=== PATIENT | male | born 1935 | race Caucasian/White ===

== ENCOUNTER → 2017-10-14 16:15 | Outpatient (CLI) | payer OTHER, SELFPAY ==
--- NOTE | 2017-10-14 16:18 | DI.RAD.S_ITS ---
PROCEDURE: XR LUMBAR SPINE MIN 4V INDICATIONS: Spinal stenosis with gait instability TECHNIQUE: 5 views of the lumbar spine were acquired. COMPARISON: None. FINDINGS: Bones: 5 nonrib-bearing vertebrae are present. There is grade 1 anterolisthesis of L5 on S1. Decrease intervertebral disc space and degenerative endplate changes are noted to all lumbar spine more prominent at L4-5 and L5-S1 levels. No vertebral body compression fractures. No suspicious bony lesions. Soft tissues: Overlying bowel gas pattern is normal. No suspicious soft tissue calcifications. Oblique images: There is suggestion of bilateral pars defect at L5 level. IMPRESSION: Possible pars defect at L5 level with grade 1 anterolisthesis of L5 on S1. Degenerative disc disease throughout lumbar spine more prominent in L4-5 and L5-S1 levels. Dictated by: Vernon Garcia M.D. on 10/15/2017 at 11:04 Approved by: Vernon Garcia M.D. on 10/15/2017 at 11:05
--- NOTE | 2017-10-14 16:18 | DI.MRI.S_ITS ---
PROCEDURE: MR LUMBAR SPINE WO CON INDICATIONS: Spinal stenosis with gait instability TECHNIQUE: Noncontrast sagittal T1 spin echo and T2 fast echo, sagittal STIR, coronal T2, axial T1 and T2 fast spin echo through the lumbar spine. COMPARISON: [facility], CR, XR LUMBAR SPINE MIN 4V, 10/14/2017, 16:10. FINDINGS: Image quality: Excellent. Alignment and Curvature: There are 5 lumbar-type vertebral bodies by plain film. There is mild, grade 1 anterolisthesis of L5 on S1. There is mild diffuse leftward curvature of the lumbar spine. Bone Marrow: Marrow is of normal overall signal. No acute vertebral body compression fractures. Moderate reactive signal within the endplates adjacent to the the L5-S1 intervertebral disc. Mild reactive signal within the endplates adjacent to the T12-L1, L1-L2, L2-L3, L3-L4, and L4-L5 intervertebral discs. Spinal Cord: Conus medullaris terminates at the L2-L3 disc space level. Visualized cord demonstrates normal signal and size. Paraspinous Soft Tissues: No paravertebral masses. L1-L2: Mild disc desiccation and diffuse disc bulge. Mild facet hypertrophy. Mild canal stenosis. Mild bilateral foraminal stenosis. L2-L3: Mild disc desiccation and diffuse disc bulge. Mild facet hypertrophy bilaterally. Mild canal stenosis. Mild left greater than right foraminal stenosis. L3-L4: Mild disc desiccation and diffuse disc bulge. Mild facet hypertrophy bilaterally. Mild canal stenosis. Mild bilateral foraminal stenosis. L4-L5: Mild disc desiccation and diffuse disc bulge. Mild facet and ligamentum flavum hypertrophy. Mild canal stenosis. Mild right greater than left foraminal stenosis. L5-S1: Moderate disc height loss and desiccation. Mild diffuse disc bulge/osteophyte. Moderate facet and ligamentum flavum artery bilaterally. Moderate canal stenosis. Severe bilateral foraminal stenosis. Bilateral intraforaminal L5 nerve root flattening. IMPRESSION: 1. Multilevel degenerative disc and facet disease, as well as ligamentum hypertrophy. 2. Multilevel canal stenoses, worst at L5-S1, where there is moderate canal stenosis. 3. Multilevel foraminal stenoses, worse at L5-S1 bilaterally, where there is bilateral L5 nerve root flattening. Recommend correlation with clinical symptoms to ascertain relevance of this finding. Dictated by: Angelika Layton M.D. on 10/15/2017 at 8:20 Approved by: Angelika Layton M.D. on 10/15/2017 at 8:30
== END ==
PROVIDERS: PCP Internal Medicine; Visit Provider Physical Medicine & Rehabilitation
DX: M48.062 Spinal stenosis, lumbar region with neurogenic claudication (principal); R26.81 Unsteadiness on feet; M51.36 Other intervertebral disc degeneration, lumbar region; M51.37 Other intervertebral disc degeneration, lumbosacral region; M43.17 Spondylolisthesis, lumbosacral region; M48.07 Spinal stenosis, lumbosacral region
CPT/HCPCS: 72110; 72148

== ENCOUNTER 2017-11-16 10:19 | Outpatient (CLI) | payer OTHER, SELFPAY ==
[2017-11-16] MEDS: BUPIVACAINE 0.25% (PF) VIAL 2 ML INJ (10:20)
[2017-11-16] MEDS: DEXAMETHASONE 10 MG/ML VIAL 20 MG INJ (10:20)
--- NOTE | 2017-11-16 10:20 | DI.RAD.S_ITS ---
PROCEDURE: PAIN L INTERLAMINAR/CAUDAL INJ INDICATIONS: 83857 L5/S1 Translaminar Epidural Steroid Injection FINDINGS: Fluoroscopic spot filming was performed to verify placement of spinal needles at the L5-S1 level(s), as labeled on the films. Appropriate location(s) of the needle tip(s) was confirmed by injection of iodinated contrast. IMPRESSION: Fluoroscopy for pain management. Dictated by: Keisha Hopson M.D. on 11/16/2017 at 12:49 Approved by: Keisha Hopson M.D. on 11/16/2017 at 12:50
[2017-11-16 10:29] VITALS: BP 184/96; PULSE 78; RESP 18; TEMP 36.1; O2SAT 98
[2017-11-16 10:50] VITALS: BP 168/98; PULSE 79; RESP 16; O2SAT 100
[2017-11-16 10:55] VITALS: BP 146/76; PULSE 79; RESP 19; O2SAT 100
--- NOTE | 2017-11-16 11:07 | P.PCN_ITS ---
Procedures Date/Time Date of procedure: 11/16/17 Time of procedure: 11:06 General Procedure description: PROVIDER: Deon Gonzalez DO Operative Note PREOP DIAGNOSIS 1. HNP WITH RADICULAR FEATURES, 2. MULTILEVEL CENTRAL STENOSIS, POST OP DIAGNOSIS 1. HNP WITH RADICULAR FEATURES, 2. MULTILEVEL CENTRAL STENOSIS, PROCEDURES 1. FLUORSCOPICALLY GUIDED CONTRAST CONTROLLED INTERLAMINAR EPIDURAL STEROID INJECTION - L5/S1 PHYSICIAN: Deon Gonzalez DO INDICATIONS Deon is referred by Dr. Womack for treatment of Bilateral Foraminal Stenosis L >R LE symptoms. FINDINGS Multilevel Central Spinal Stenosis with Nerve Root Compression DESCRIPTION OF PROCEDURE Fluoroscopically guided, contrast-controlled L5/S1 translaminar epidural steroid injection. Following denial of allergy and review of potential side effects and complications, including, but not necessarily limited to, infection, allergic reaction, local tissue breakdown, temporary as well as permanent nerve injury, paralysis, stroke and possible , the patient indicated that the patient understood and agreed to proceed. An informed consent document was signed by the patient, witnessed by a nurse, and placed in the patient's chart. Additionally, other treatment options including modalities, medications, and physical therapy were reviewed with the patient. After review of previous anaesthesic history and IV conscious sedation the patient was deemed safe to proceed with todays procedure with IV conscious sedation as ASA class II designation. Safety time-out was performed to confirm patient ID, procedure to be performed and site of procedure. IV sedation was accomplished with a combination of 2mg of Versed administered by the RN after DO order, titrated to patient comfort during the course of the procedure while the patient remained responsive to all verbal commands. In the prone position, following sterile prep and drape of the lumbar region, the L5/S1 translaminar space was identified fluoroscopically. The skin was anesthetized via a 25-gauge, 1.5-inch needle with 1% lidocaine solution. At this point, a 22-gauge short bevel spinal needle was atraumatically introduced and advanced under fluoroscopic guidance into the region of the L5/S1 translaminar space. Depth was confirmed on lateral view. Radiological data, including multiple fluoroscopic views of the lumbar spine, reveal a spinal needle at the L5/S1 translaminar space. Lateral views then show placement of the needle in the epidural space. Subsequent views show contrast material flowing superiorly and inferiorly in the epidural space. No vascular or intrathecal uptake is observed. At this point, using loss of resistance technique with saline and air, the epidural space was entered. This was confirmed following negative aspiration with injection of approximately 1.5 cc of Isovue 200, showing excellent epidural flow without vascular or intrathecal uptake. At this point, 1 cc of 1 % lidocaine solution combined with 3 cc or 20 mg of dexamethasone and 80mg Depo medrol was injected without incident. The patent tolerated the procedure without signs of symptoms of complications prior to transfer to the recovery area for further monitoring. The patient was then transferred to the recovery area where they were observed for an appropriate period of time after the injection. The patient reported a VAS score of 6 prior to the procedure and a post-procedure VAS of 0. Total Fluoroscopy Time: 11.8 seconds Total Conscious Sedation Time: 24min POST OP INSTRUCTIONS The patient was provided a Pain Log to continue to record their response to the target-specific procedure prior to follow-up visit with their referring physician. Additionally, specific post-injection care instructions and a contact number to our office were provided if concerns arise regarding possible complications associated with the procedure are suspected. Deon Gonzalez DO Complications: none
[2017-11-16 11:08] VITALS: BP 147/87; PULSE 76; RESP 18; O2SAT 97
[2017-11-16 11:12] VITALS: BP 149/85; PULSE 73; RESP 18; O2SAT 98
[2017-11-16] MEDS: methylPREDNISolone acetate 80 MG/ML VIAL INJ (11:13)
[2017-11-16] MEDS: IOPAMIDOL 15 ML VIAL 3 ML INJ (11:13)
== END 2017-11-16 11:38 | disposition home or self-care (01) ==
LOC: RAD 10:20
PROVIDERS: PCP Internal Medicine; Visit Provider Physical Medicine & Rehabilitation
DX: M48.062 Spinal stenosis, lumbar region with neurogenic claudication (principal); M48.07 Spinal stenosis, lumbosacral region; M51.17 Intervertebral disc disorders with radiculopathy, lumbosacral region
CPT/HCPCS: 62323; 99152; J1040; J1100; J2250

== ENCOUNTER 2017-12-21 13:54 | Outpatient (CLI) | payer OTHER, SELFPAY ==
[2017-12-21] VITALS (8 sets, daily range): BP systolic 151–170; BP diastolic 77–115; PULSE 72–101; RESP 18–19; TEMP 37; O2SAT 97–100
--- NOTE | 2017-12-21 13:55 | DI.RAD.S_ITS ---
PROCEDURE: PAIN L/S TRANSFORAMINAL INJECT INDICATIONS: SPONDYLOSIS FINDINGS: Fluoroscopic spot filming was performed to verify placement of spinal needles at the left L5-S1 level(s), as labeled on the films. Appropriate location(s) of the needle tip(s) was confirmed by injection of iodinated contrast. IMPRESSION: Fluoroscopy for pain management. Dictated by: Keisha Hopson M.D. on 12/21/2017 at 17:11 Approved by: Keisha Hopson M.D. on 12/21/2017 at 17:11
[2017-12-21] MEDS: MIDAZOLAM 5 MG/5 ML VIAL IV (14:57)
[2017-12-21] MEDS: IOPAMIDOL 15 ML VIAL 3 ML INJ (14:58)
[2017-12-21] MEDS: DEXAMETHASONE 10 MG/ML VIAL 20 MG INJ (14:58)
[2017-12-21] MEDS: methylPREDNISolone acetate 80 MG/ML VIAL INJ (14:58)
[2017-12-21] MEDS: BUPIVACAINE 0.25% (PF) VIAL 2 ML INJ (14:58)
--- NOTE | 2017-12-21 15:00 | PC.NURSE ---
pt accidentally discharged from tracker by this RN. pt in procedure at this time.
--- NOTE | 2017-12-21 15:12 | P.PCN_ITS ---
Procedures Date/Time Date of procedure: 12/21/17 Time of procedure: 15:11 General Procedure description: PREOP DIAGNOSIS 1. FORMAINAL STENOSIS WITH LE SYMPTOMS POST OP DIAGNOSIS 1. FORMAINAL STENOSIS WITH LE SYMPTOMS PROCEDURES 1. FLUOROSCOPICALLY GUIDED CONTRAST CONTROLLED TRANSFORAMINAL EPIDURAL STEROID INJECTION - Left L5/S1 PHYSICIAN: Deon Gonzalez DO INDICATIONS: Deon is referred by Dr. Womack for treatment of Foraminal Stenosis with Left> Right LE Symptoms FINDINGS Foraminal Nerve Root Compression secondary to disc disease and facet hypertrophy DESCRIPTION OF PROCEDURE: Following denial of allergy and review of potential side effects and complications, including, but not necessarily limited to, infection, allergic reaction, local tissue breakdown, stroke, temporary or permanent nerve injury, paralysis, and possible , the patient indicated that the patient understood and agreed to proceed. An informed consent document was signed by the patient, witnessed by a nurse, and placed in the patient's chart. Additionally, other treatment options including medications, modalities, and physical therapy were reviewed with the patient. After review of previous anaesthesic history and IV conscious sedation the patient was deemed safe to proceed with todays procedure with IV conscious sedation as ASA class II designation. Safety time-out was performed to confirm patient ID, procedure to be performed and site of procedure. IV sedation was accomplished with a combination of 3mg was administered by the RN after DO order , titrated to patient comfort during the course of the procedure while the patient remained responsive to all verbal commands In the prone position following sterile prep and drape of the lumbar region, the Left L5/S1 posterior neuroforamen was identified fluoroscopically. The skin was anesthetized via a 25-gauge 1.5-inch needle with 1% lidocaine solution. At this point, a 25-gauge 3.5-inch spinal needle was atraumatically introduced and advanced under fluoroscopic guidance through the posterior Left L5/S1 neuroforamen to approximately the anterior aspect of the canal. Depth was confirmed on lateral view. Following negative aspiration, injection of approximately 1.5 cc of Isovue 200 under live fluoroscopy in the AP view confirmed excellent flow along the nerve root, into the epidural space without vascular or intrathecal uptake observed Radiological data, including multiple fluoroscopic views of the lumbosacral spine, reveal a spinal needle at the Left L5/S1 posterior neuroforamen. Subsequent views show flow of contrast material flowing superiorly and inferiorly along the nerve root confirming epidural flow. Subsequently, a test dose of 1.5 cc of 1% lidocaine solution was administered and patient was observed for two minutes for signs or symptoms of complications , including abdominal pain, shortness of breath, bilateral upper or lower extremity weakness, nausea and vomiting, prior to steroid injection. At this point, a total of 3 cc or 20 mg of dexamethasone and 80mg Depo Medrol was injected without incident. The procedure tolerated the procedure well without signs or symptoms of complications prior to transfer to the recovery area continued monitoring without incident. The patient was then transferred to the recovery area where they were observed for an appropriate time after the injection. The patient reported a VAS score of 7 prior to the procedure and a post-procedure VAS of 0. Total Fluoroscopy Time: 20.9 seconds Total Conscious Sedation Time: 24min POST OP INSTRUCTIONS The patient was provided a Pain Log to continue to record their response to the target-specific procedure prior to follow-up visit with their referring physician. Additionally, specific post-injection care instructions and a contact number to our office were provided if concerns arise regarding possible complications associated with the procedure are suspected. Deon Gonzalez DO Complications: none
--- NOTE | 2017-12-21 15:16 | PC.NURSE ---
pt finished at 1505, tolerated procedure, vss, was awake through procedure, able to get up and off table without difficulty. transferred pt care to Kaylee RIVERA in pre procedure room for continued monitoring.
== END 2017-12-21 15:35 | disposition home or self-care (01) ==
LOC: RAD 13:55
PROVIDERS: PCP Internal Medicine; Visit Provider Physical Medicine & Rehabilitation
DX: M48.07 Spinal stenosis, lumbosacral region (principal); M48.062 Spinal stenosis, lumbar region with neurogenic claudication; M51.17 Intervertebral disc disorders with radiculopathy, lumbosacral region
CPT/HCPCS: 64483; 99152; J1040; J1100; J2250

== ENCOUNTER → 2018-06-03 10:32 | Outpatient (CLI) | payer OTHER, SELFPAY ==
[2018-06-03 11:47] LABS: Alanine Aminotransferase 25 IU/L (21-72); Albumin 4.7 g/dL (3.5-5.0); Albumin Globulin Ratio 1.5 (1.0-2.8); Alkaline Phosphatase 103 U/L (38-126); Aspartate Aminotransferase 23 IU/L (17-59); BUN Creatinine Ratio 22.7 (6-22); Bilirubin Total 0.9 mg/dL (0.2-1.3); Blood Urea Nitrogen 25 mg/dL (9-20); Calcium 9.4 mg/dL (8.4-10.2); Carbon Dioxide 27 mmol/L (22-32); Chloride 103 mmol/L (98-107); Cholesterol 189 mg/dL (140-199); Estimated Glomerular Filt Rate > 60.0 mL/min (>60); Globulin 3.1 g/dL (1.7-4.1); Glucose 101 mg/dL (80-110); HDL Cholesterol 63 mg/dL (40-60); HEMOLYSIS < 15 (0-50); LDL Cholesterol Calculated 112 mg/dL (<100); Potassium 4.2 mmol/L (3.4-5.1); Sodium 140 mmol/L (137-145); Total Protein 7.8 g/dL (6.3-8.2); Triglycerides 68 mg/dL (35-150)
== END ==
PROVIDERS: PCP Internal Medicine; Visit Provider Internal Medicine
DX: E78.2 Mixed hyperlipidemia (principal); I10 Essential (primary) hypertension
CPT/HCPCS: 36415; 80053; 80061

== ENCOUNTER → 2019-01-16 15:10 | Outpatient (CLI) | payer OTHER, SELFPAY ==
[2019-01-16 15:32] LABS: Add Manual Diff / Slide Review NO; Basophils Absolute Auto 100 /uL (0-100); Basophils Percent Auto 1.1 % (0-2); Eosinophils Absolute Auto 100 /uL (0-450); Eosinophils Percent Auto 0.7 % (2-4); Hematocrit 42.7 % (41-53); Hemoglobin 14.8 g/dL (13.5-17.5); Lymphocytes Absolute Auto 5100 /uL (1100-4500); Mean Corpuscular HGB Conc 34.6 % (30-36); Mean Corpuscular Hemoglobin 30.6 PG (26-34); Mean Corpuscular Volume 88.6 fL (80-100); Monocytes Absolute Auto 500 /uL (0-900); Monocytes Percent Auto 4.9 % (3-14); Neutrophils Absolute Auto 4000 /uL (1500-7000); Neutrophils Percent Auto 41.3 % (50-75); Platelet Count 181 X10^3/uL (150-400); Red Blood Cell Count 4.81 X10^6/uL (4.5-5.9); Red Cell Distribution Width 14.1 % (11.6-14.8); White Blood Cell Count 9.8 X10^3/uL (4.5-11.0)
[2019-01-16 15:50] LABS: Erythrocyte Sedimentation Rate 5 MM/HR (0-15)
[2019-01-16 16:37] LABS: Alanine Aminotransferase 17 IU/L (<50); Albumin 4.6 g/dL (3.5-5.0); Albumin Globulin Ratio 1.4 (1.0-2.8); Alkaline Phosphatase 84 U/L (38-126); Aspartate Aminotransferase 27 IU/L (17-59); BUN Creatinine Ratio 18.6 (6-22); Bilirubin Total 1.1 mg/dL (0.2-1.3); Blood Urea Nitrogen 26 mg/dL (9-20); C-Reactive Protein Quant 0.9 mg/dL (<1.0); Calcium 9.6 mg/dL (8.4-10.2); Carbon Dioxide 28 mmol/L (22-32); Chloride 98 mmol/L (98-107); Creatine Kinase 76 U/L (55-170); Estimated Glomerular Filt Rate 48.5 mL/min (>60); Globulin 3.2 g/dL (1.7-4.1); Glucose 103 mg/dL (80-110); HEMOLYSIS < 15 (0-50); Lipase 132 U/L (23-300); Potassium 4.1 mmol/L (3.4-5.1); Sodium 138 mmol/L (137-145); Total Protein 7.8 g/dL (6.3-8.2)
[2019-01-16 16:51] LABS: Free T4, Direct Thyroxine 1.51 ng/dL (0.78-2.19)
[2019-01-16 17:06] LABS: Thyroid Stimulating Hormone 1.53 uIU/mL (0.47-4.68)
== END ==
PROVIDERS: PCP Internal Medicine; Visit Provider Internal Medicine
DX: E78.2 Mixed hyperlipidemia (principal); I10 Essential (primary) hypertension; I25.10 Atherosclerotic heart disease of native coronary artery without angina pectoris; R26.81 Unsteadiness on feet; R63.0 Anorexia; R63.4 Abnormal weight loss; R53.1 Weakness
CPT/HCPCS: 36415; 80053; 82550; 83690; 84439; 84443; 85025; 85651; 86140

== ENCOUNTER → 2020-05-01 13:40 | Outpatient (CLI) | payer MEDICARE, SELFPAY ==
[2020-05-01] MEDS: COVID-19 VACC, Ad26(JANSSEN)/PF 0.5 ML IM (13:51)
== END ==
PROVIDERS: PCP Internal Medicine; Visit Provider Internal Medicine
DX: Z23 Encounter for immunization (principal)
CPT/HCPCS: 0031A; 91303

== ENCOUNTER → 2020-09-24 14:07 | Outpatient (CLI) | payer OTHER, SELFPAY ==
[2020-09-24 15:50] LABS: Alanine Aminotransferase 15 IU/L (<50); Albumin 4.2 g/dL (3.5-5.0); Albumin Globulin Ratio 1.1 (1.0-2.8); Alkaline Phosphatase 119 U/L (38-126); Aspartate Aminotransferase 26 IU/L (17-59); BUN Creatinine Ratio 18.8 (6-22); Bilirubin Total 0.6 mg/dL (0.2-1.3); Blood Urea Nitrogen 26 mg/dL (9-20); Calcium 9.2 mg/dL (8.4-10.2); Carbon Dioxide 25 mmol/L (22-32); Chloride 105 mmol/L (98-107); Estimated Glomerular Filt Rate 49.1 mL/min (>60); Globulin 3.8 g/dL (1.7-4.1); Glucose 111 mg/dL (80-110); HEMOLYSIS < 15 (0-50); Sodium 139 mmol/L (137-145); Uric Acid 6.6 mg/dL (3.5-8.5)
[2020-09-24 16:21] LABS: TSH w/ Reflex to FT4 1.28 uIU/mL (0.47-4.68)
== END ==
PROVIDERS: PCP Internal Medicine; Referring Provider Internal Medicine; Visit Provider Internal Medicine
DX: E78.2 Mixed hyperlipidemia (principal); I10 Essential (primary) hypertension; R60.9 Edema, unspecified
CPT/HCPCS: 36415; 80053; 84443; 84550

== ENCOUNTER → 2020-10-22 12:24 | Outpatient (CLI) | payer OTHER, SELFPAY ==
[2020-10-22 13:45] LABS: BUN Creatinine Ratio 19.1 (6-22); Blood Urea Nitrogen 25 mg/dL (9-20); Calcium 9.1 mg/dL (8.4-10.2); Carbon Dioxide 29 mmol/L (22-32); Chloride 103 mmol/L (98-107); Estimated Glomerular Filt Rate 52.1 mL/min (>60); Glucose 105 mg/dL (80-110); HEMOLYSIS < 15 (0-50); Potassium 4.5 mmol/L (3.4-5.1); Sodium 139 mmol/L (137-145)
== END ==
PROVIDERS: PCP Internal Medicine; Referring Provider Internal Medicine; Visit Provider Internal Medicine
DX: R60.9 Edema, unspecified (principal)
CPT/HCPCS: 36415; 80048

== ENCOUNTER → 2020-11-12 14:49 | Outpatient (CLI) | payer OTHER, SELFPAY ==
--- NOTE | 2020-11-12 15:12 | DI.ECHO.S_ITS ---
Reason For Study: PERIPHERAL EDEMA : :Ordering Physician: DANNI, : :FRANCISCA Heredia Performed By: Julia Hernandez : :Referring: FRANCISCA RAZO : + + Interpretation Summary Normal sinus rhythm. Normal LV size, wall thickness, wall motion and LV systolic function. EF is 50-55%. Stage I diastolic dysfunction. Severe biatrial enlargement. No significant valvular abnormalities. No prior study available for comparison. No cardiovascular etiology of peripheral edema found. Procedure: A two-dimensional transthoracic echocardiogram with color flow and Doppler was performed. The study quality was technically adequate. There is no prior echocardiogram noted for this patient. The patient was in sinus rhythm with heart rates between 61-78 bpm during the exam. Left Ventricle: The left ventricle is normal in size and wall thickness. The ejection fraction is estimated to be 50-55%. Right Ventricle: The right ventricle is normal in size and function. Atria: The left atrium is severely dilated. The right atrium is severely dilated. There is no Doppler evidence for an interatrial shunt. The atrial septum is aneurysmal. Mitral Valve: The mitral valve leaflets appear mildly thickened, but open well. There is mild mitral regurgitation. Aortic Valve: The aortic valve is trileaflet. The aortic valve opens well. There is mild aortic valve sclerosis. There is no aortic valve stenosis. There is mild aortic regurgitation. Tricuspid Valve: The tricuspid valve is normal in structure and function. There is mild tricuspid regurgitation. Pulmonic Valve: The pulmonic valve leaflets are thin and pliable; valve motion is normal. There is mild pulmonic regurgitation. Great Vessels: The aortic root is normal size. The ascending aorta is mildly enlarged. The IVC is of normal diameter and collapses greater than 50% with a sniff. This suggests a low right atrial pressure of 3 mm Hg. Pericardium/ Pleura There is no pericardial effusion. There is no pleural effusion. MMode/2D Measurements & Calculations LVIDd: 5.3 cm LVOT diam: 2.3 cm LVIDs: 4.1 cm Ao root diam: 3.9 cm FS: 23.9 % asc Aorta Diam: 3.6 cm IVSd: 0.80 cm LVPWd: 1.1 cm LV donovan. diameter/BSA (cm/m^2): 2.9 LV sys. diameter/BSA (cm/m^2): 2.2 LA A2 area: 27.9 cm2 RA long axis: 5.8 cm LA A4 area: 28.8 cm2 RA area: 24.8 cm2 LA length (vol): 6.2 cm RA vol: 89.7 ml LA vol: 109.6 ml RA : 48.3 ml/m2 LA vol index: 59.0 ml/m2 IVC diam: 1.4 cm RVD1 (basal): 3.7 cm RVD2 (mid): 3.3 cm TAPSE: 2.6 cm Doppler Measurements & Calculations Ao V2 max: 162.1 cm/sec LVOT Max Beto: 88.5 cm/sec Ao V2 mean: 123.5 cm/sec LV V1 max P.1 mmHg Ao max P.5 mmHg LV V1 VTI: 20.2 cm Ao mean P.6 mmHg WANG(I,D): 2.4 cm2 Ao V2 VTI: 36.2 cm WANG(V,D): 2.3 cm2 sev ratio: 0.56 WANG indexed to BSA (cm^2/m^2): 1.3 MV E max beto: 71.1 cm/sec TR max beto: 261.8 cm/sec MV A max beto: 94.4 cm/sec TR max P.4 mmHg MV E/A: 0.75 PA V2 max: 86.0 cm/sec Med Peak E' Beto: 7.3 cm/sec PA V2 mean: 59.5 cm/sec E/E' med: 9.7 PA mean P.5 mmHg Lat Peak E' Beto: 9.3 cm/sec PA pr(Accel): 32.8 mmHg E/E' lat: 7.6 E/e' average: 8.7 MV dec time: 0.23 sec SV(LVOT): 85.8 ml Electronically signed by: Saranya Nuñez M.D. on Reading Physician:11/13/2020 01:20 AM
== END ==
PROVIDERS: PCP Internal Medicine; Referring Provider Internal Medicine; Visit Provider Internal Medicine
DX: R60.9 Edema, unspecified (principal); I51.7 Cardiomegaly
CPT/HCPCS: 93306

== ENCOUNTER → 2021-04-16 14:01 | Outpatient (CLI) | payer OTHER, SELFPAY ==
[2021-04-16 15:49] LABS: Alanine Aminotransferase 12 IU/L (<50); Albumin 4.4 g/dL (3.5-5.0); Albumin Globulin Ratio 1.1 (1.0-2.8); Alkaline Phosphatase 107 U/L (38-126); Aspartate Aminotransferase 25 IU/L (17-59); BUN Creatinine Ratio 17.2 (6-22); Bilirubin Total 0.7 mg/dL (0.2-1.3); Blood Urea Nitrogen 26 mg/dL (9-20); Carbon Dioxide 28 mmol/L (22-32); Chloride 105 mmol/L (98-107); Estimated Glomerular Filt Rate 44.2 mL/min (>60); Glucose 104 mg/dL (80-110); HEMOLYSIS < 15 (0-50); Potassium 4.4 mmol/L (3.4-5.1); Sodium 139 mmol/L (137-145); Total Protein 8.4 g/dL (6.3-8.2)
== END ==
PROVIDERS: PCP Internal Medicine; Referring Provider Internal Medicine; Visit Provider Internal Medicine
DX: N18.31 Chronic kidney disease, stage 3a (principal); I10 Essential (primary) hypertension; E78.2 Mixed hyperlipidemia
CPT/HCPCS: 36415; 80053

== ENCOUNTER → 2021-08-29 10:51 | Outpatient (CLI) | payer OTHER, SELFPAY ==
[2021-08-29 12:10] LABS: BUN Creatinine Ratio 18.5 (6-22); Blood Urea Nitrogen 25 mg/dL (9-20); Calcium 8.9 mg/dL (8.4-10.2); Carbon Dioxide 29 mmol/L (22-32); Chloride 102 mmol/L (98-107); Estimated Glomerular Filt Rate 51 mL/min (>60); Glucose 99 mg/dL (80-110); HEMOLYSIS < 15 (0-50); Potassium 4.4 mmol/L (3.4-5.1); Sodium 140 mmol/L (137-145)
== END ==
PROVIDERS: PCP Internal Medicine; Referring Provider Internal Medicine; Visit Provider Internal Medicine
DX: I10 Essential (primary) hypertension (principal); N18.31 Chronic kidney disease, stage 3a
CPT/HCPCS: 36415; 80048

== ENCOUNTER → 2022-02-27 11:40 | Outpatient (CLI) | payer OTHER, SELFPAY ==
[2022-02-27 13:12] LABS: BUN Creatinine Ratio 26.2 (6-22); Blood Urea Nitrogen 33 mg/dL (9-20); Calcium 8.5 mg/dL (8.4-10.2); Carbon Dioxide 29 mmol/L (22-32); Chloride 103 mmol/L (98-107); Estimated Glomerular Filt Rate 56 mL/min (>60); Glucose 94 mg/dL (80-110); HEMOLYSIS 36 (0-50); Potassium 4.7 mmol/L (3.4-5.1); Sodium 140 mmol/L (137-145)
== END ==
PROVIDERS: PCP Internal Medicine; Referring Provider Internal Medicine; Visit Provider Internal Medicine
DX: I10 Essential (primary) hypertension (principal); N18.31 Chronic kidney disease, stage 3a
CPT/HCPCS: 36415; 80048

== ENCOUNTER → 2022-09-04 11:34 | Outpatient (CLI) | payer OTHER, SELFPAY ==
[2022-09-04 12:43] LABS: Alanine Aminotransferase 17 IU/L (<50); Albumin 4.3 g/dL (3.5-5.0); Albumin Globulin Ratio 1.1 (1.0-2.8); Alkaline Phosphatase 111 U/L (38-126); Aspartate Aminotransferase 24 IU/L (17-59); BUN Creatinine Ratio 18.1 (6-22); Bilirubin Total 0.8 mg/dL (0.2-1.3); Blood Urea Nitrogen 23 mg/dL (9-20); Calcium 8.6 mg/dL (8.4-10.2); Carbon Dioxide 28 mmol/L (22-32); Chloride 101 mmol/L (98-107); Estimated Glomerular Filt Rate 55 mL/min (>60); Globulin 3.9 g/dL (1.7-4.1); Glucose 104 mg/dL (80-110); HEMOLYSIS < 15 (0-50); Sodium 137 mmol/L (137-145); Total Protein 8.2 g/dL (6.3-8.2)
== END ==
PROVIDERS: PCP Internal Medicine; Referring Provider Internal Medicine; Visit Provider Internal Medicine
DX: I10 Essential (primary) hypertension (principal); E78.2 Mixed hyperlipidemia; N18.31 Chronic kidney disease, stage 3a
CPT/HCPCS: 36415; 80053

== ENCOUNTER 2024-03-20 11:08 | Inpatient (IN) | payer OTHER, SELFPAY ==
[2024-03-20] VITALS (12 sets, daily range): BP systolic 127–164; BP diastolic 51–90; PULSE 73–119; RESP 16–33; TEMP 36.9–37.2; O2SAT 89–100; BMI 23.3
--- NOTE | 2024-03-20 11:32 | EKG_ITS ---
[facility] [address] [place] [address] Test Date: 2024-03-20 Pat Name: Deon Gonzalez Department: [facility] Room: Gender: Male Binding Nicker: STANLEY : 1935 Requested By: Order Number: [id number] Reading MD: Erik Lima Measurements Intervals [place] Rate: 101 P: 80 NM: 212 QRS: -87 QRSD: 142 T: 60 QT: 386 QTc: 500 Interpretive Statements Sinus tachycardia with 1st degree AV block with premature atrial complexes Right bundle branch block Left anterior fascicular block Bifascicular block Electronically Signed On 03-20-2024 18:21:12 PST by Erik Lima
[2024-03-20] MEDS: ONDANSETRON 4 MG/2 ML INJ IV (11:36)
[2024-03-20] MEDS: PANTOPRAZOLE 40 MG VIAL 80 MG IV (11:36)
[2024-03-20 11:38] LABS: Add Manual Diff / Slide Review NO; Basophils Absolute Auto 0 /uL (0-100); Basophils Percent Auto 0.3 % (0-2); Eosinophils Absolute Auto 0 /uL (0-450); Hematocrit 43.1 % (41-53); Hemoglobin 14.1 g/dL (13.5-17.5); Lymphocytes Absolute Auto 6700 /uL (1100-4500); Mean Corpuscular HGB Conc 32.8 % (30-36); Mean Corpuscular Hemoglobin 28.7 PG (26-34); Mean Corpuscular Volume 87.4 fL (80-100); Monocytes Absolute Auto 600 /uL (0-900); Neutrophils Absolute Auto 7800 /uL (1500-7000); Neutrophils Percent Auto 51.7 % (50-75); Platelet Count 199 X10^3/uL (150-400); Red Blood Cell Count 4.94 X10^6/uL (4.5-5.9); Red Cell Distribution Width 15.8 % (11.6-14.8); White Blood Cell Count 15.2 X10^3/uL (4.5-11.0)
[2024-03-20 11:39] LABS: Alanine Aminotransferase 51 IU/L (<50); Albumin 4.6 g/dL (3.5-5.0); Albumin Globulin Ratio 1.4 (1.0-2.8); Alkaline Phosphatase 95 U/L (38-126); Aspartate Aminotransferase 106 IU/L (17-59); BUN Creatinine Ratio 20.4 (6-22); Bilirubin Total 0.9 mg/dL (0.2-1.3); Blood Urea Nitrogen 28 mg/dL (9-20); Calcium 8.8 mg/dL (8.4-10.2); Carbon Dioxide 20 mmol/L (22-32); Chloride 102 mmol/L (98-107); Estimated Glomerular Filt Rate 50 mL/min (>60); Globulin 3.3 g/dL (1.7-4.1); Glucose 123 mg/dL (80-110); HEMOLYSIS 39 (0-50); Lipase 102 U/L (23-300); Potassium 4.2 mmol/L (3.4-5.1); Sodium 136 mmol/L (137-145); Total Protein 7.9 g/dL (6.3-8.2)
--- NOTE | 2024-03-20 11:56 | ED.WEAKNESS ---
HPI - Weakness General Chief complaint: Abdominal Pain Stated complaint: Fall, Weakness Time Seen by Provider: 03/20/24 11:25 Source: patient Mode of arrival: Ambulatory History of Present Illness HPI Narrative: Patient is an 88 year male history of hyperlipidemia chronic pain presenting today with increasing weakness. He reports he thinks he ate something bad last night like a chicken pot pie he started throwing up. EMS reports that it was coffee-ground emesis. He has not on anticoagulation but does take aspirin, he denies any black stool. He denies any sort of shortness of breath or chest pain. Reports that he laid on the floor most of the night he was able to crawl to his phone where he used to stick to get it off the table and ultimately called 911 this morning. He does admit to drinking alcohol says that he has 2 glasses of wine daily and has for number of years. He appears to be in atrial fibrillation he has no history of atrial fibrillation. He feels like his abdomen is blocked because he has not had a bowel movement but he has no abdominal pain. He denies any chest pain or palpitations. He says he was feeling fine yesterday no recent illness Related Data Home Medications Medication Instructions Recorded Confirmed ASPIRIN (#ASPIRIN) 81 mg PO Q DAY ##0 05/06/11 03/20/24 ibuprofen 200 mg capsule 200 mg PO Q8H PRN fever or pain 05/09/21 03/20/24 Previous Rx's Medication Instructions Recorded amlodipine 10 mg tablet 10 mg PO QDAY #90 tabs 03/01/23 atorvastatin 40 mg tablet 40 mg PO QDAY #90 tabs 03/01/23 pantoprazole 40 mg tablet,delayed 40 mg PO QAM PRN GERD #90 tabs 06/21/23 release (Protonix) Allergies Allergy/AdvReac Type Severity Reaction Status Date / Time No Known Drug Allergies Allergy Verified 03/01/23 10:13 Patient History Medical History Chronic renal failure, stage 3a Vision disorder Hearing loss Osteoarthritis Hay fever (~1963) Abnormal chest x-ray (~1959) Shoulder pain (~2015) Chronic back pain Rosacea (~1999) Chicken pox (~194) Cataract (~2011) GI bleeding (~2013) Chronic rhinitis (02/08/02) Gastroesophageal reflux disease without esophagitis (04/22/15) Essential hypertension Tinnitus Mixed hyperlipidemia 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 HEENT: Head atraumatic,EOMI, pupils reactive, face symmetric, [moist] mucous membranes CARDIOVASCULAR: Regular rate and rhythm without murmurs, rubs or gallops. RESPIRATORY: Breath sounds equal bilaterally, no wheezes rales or rhonchi. ABDOMEN: Soft, nontender. Normoactive bowel sounds all 4 quadrants. No guarding or rebound. EXTREMITIES: Normal range of motion, no clubbing or edema. Neurovascularly intact RECTAL: Guaiac negative NEUROLOGICAL: Alert and oriented x4.Normal gait and speech. Cranial nerves II through XII grossly intact. Assisted Living Associate strength equal bilaterally. Able to lift up both legs SKIN: Contusion noted left anterior ribs no petechiae Course Orders Ordered: ED Orders 03/20/24 11:00 BNP [NT-proBNP (BNP-Adult 18+)] Stat Complete Blood Count AUTO DIFF Stat Comprehensive Metabolic Panel Stat D Dimer Stat ETOH [Ethanol (ETOH)] Stat Lactate (Lactic Acid) Stat Lipase Stat MAG [Magnesium] Stat TSH [Thyroid Stimulating Hormone] Stat Troponin & CK Cardiac Panel Stat 03/20/24 11:22 EKG-12 Lead Stat 03/20/24 11:26 Urine Microscopic Stat 03/20/24 11:40 PT [Prothrombin Time INR] Stat PTT Partial Thromboplastin Brenden Stat Type and Screen Stat 03/20/24 11:55 Covid-19 + FLU A/B + RSV - PCR Stat 03/20/24 12:14 CT angio chest PE protocol Stat CT head/brain wo con Stat 03/20/24 12:21 Chest [XR chest 1V] Stat 03/20/24 12:24 Blood Culture Stat Acetaminophen (Acetaminophen 325 Mg Tablet) 650 mg PO Q6H PRN PRN Reason: Fever/Mild Pain (1-3) Amlodipine Besylate (Amlodipine 5 Mg Tablet) 10 mg PO DAILY JOVAN Apixaban (Apixaban 5 Mg Tablet) 10 mg PO BID JOVAN Stop: 03/27/24 09:01 Atorvastatin Calcium (Atorvastatin 20 Mg Tablet) 40 mg PO BEDTIME JOVAN Naloxone HCl (Naloxone 0.4 Mg/Ml Vial) 0.2 mg IV Q2MIN PRN PRN Reason: Opiate Reversal Ondansetron HCl (Ondansetron 4 Mg/2 Ml Inj) 4 mg IV Q8HR PRN PRN Reason: Nausea And Vomiting Oxycodone HCl (Oxycodone Ir 5 Mg Tablet) 5 mg PO Q3H PRN PRN Reason: Pain, Moderate (4-6) Pantoprazole Sodium (Pantoprazole Dr 40 Mg Tablet) 40 mg PO 0700 JOVAN Zolpidem Tartrate (Zolpidem 5 Mg Tablet) 5 mg PO BEDTIME PRN PRN Reason: Sleep Discontinued Medications Enoxaparin Sodium (Enoxaparin 40 Mg/0.4 Ml Syringe) 65 mg 1 mg/kg (65 mg) SUBCUT NOW ONE Stop: 03/20/24 13:42 Last Admin: 03/20/24 15:19 Dose: Not Given Documented By: Enoxaparin Sodium (Enoxaparin 100 Mg/Ml Syringe) 65 mg 1 mg/kg (65 mg) SUBCUT NOW ONE Stop: 03/20/24 14:01 Last Admin: 03/20/24 14:21 Dose: 65 mg Documented By: Sodium Chloride (Normal Saline 0.9%) 1,973.13 mls @ 657.71 mls/hr 30 ml/kg infuse over 3 hr (1973.13 ml) IV NOW ONE Stop: 03/20/24 15:13 Last Admin: 03/20/24 12:25 Dose: 657.71 mls/hr Documented By: Piperacillin Sod/Tazobactam (Sod 4.5 gm/ Sodium Chloride) 100 mls @ 200 mls/hr IV NOW ONE Stop: 03/20/24 12:15 Last Infusion: 03/20/24 14:26 Dose: Infused Documented By: Admin: 03/20/24 12:24 Dose: 200 mls/hr Documented By: Ondansetron HCl (Ondansetron 4 Mg/2 Ml Inj) 4 mg IV NOW PRN PRN Reason: Nausea And Vomiting Last Admin: 03/20/24 11:36 Dose: 4 mg Documented By: ABNER Ondansetron HCl (Ondansetron 4 Mg Odt) 4 mg PO NOW PRN PRN Reason: Nausea And Vomiting Pantoprazole Sodium (Pantoprazole 40 Mg Vial) 80 mg IV NOW ONE Stop: 03/20/24 11:26 Last Admin: 03/20/24 11:36 Dose: 80 mg Documented By: ABNER Vital Signs Vital signs: Vital Signs - 8 hr 03/20/24 11:15 03/20/24 11:30 03/20/24 11:30 Temperature 98.4 F Pulse Rate 95 H 96 H Respiratory Rate 16 24 Blood Pressure 152/85 H 164/79 H Pulse Oximetry 95 100 Oxygen Delivery Method Nasal Cannula Nasal Cannula Oxygen Flow Rate 2 2 03/20/24 12:00 03/20/24 12:00 03/20/24 12:43 Temperature Pulse Rate 119 H 96 H Respiratory Rate 29 H 27 H Blood Pressure 143/90 H Pulse Oximetry 94 89 L Oxygen Delivery Method Oxygen Flow Rate 03/20/24 13:00 03/20/24 13:30 Temperature Pulse Rate 93 H 103 H Respiratory Rate 27 H 32 H Blood Pressure Pulse Oximetry 92 93 Oxygen Delivery Method Room Air Oxygen Flow Rate MDM - Weakness Lab Data 03/20/24 11:00 03/20/24 11:00 Labs: Lab Results 03/20/24 03/20/24 03/20/24 Range/Units 11:00 11:26 11:40 WBC 15.2 H (4.5-11.0) X10^3/uL RBC 4.94 (4.5-5.9) X10^6/uL Hgb 14.1 (13.5-17.5) g/dL Hct 43.1 (41-53) % MCV 87.4 (80-100) fL MCH 28.7 (26-34) PG MCHC 32.8 (30-36) % RDW 15.8 H (11.6-14.8) % Plt Count 199 (150-400) X10^3/uL Neut % (Auto) 51.7 (50-75) % Lymph % (Auto) 44.0 H (25-40) % Mcdonald % (Auto) 4.0 (3-14) % Eos % (Auto) 0.0 L (2-4) % Baso % (Auto) 0.3 (0-2) % Neut # (Auto) 7800 H (9870-8660) /uL Lymph # (Auto) 6700 H (2700-9008) /uL Mcdonald # (Auto) 600 (0-900) /uL Eos # (Auto) 0 (0-450) /uL Baso # (Auto) 0 (0-100) /uL PT 10.6 (9.4-12.5) SECONDS INR 0.9 (0.9-1.3) APTT 28 (25.1-36.5) SECONDS D-Dimer 2228 H (<500) ng/ml Sodium 136 L (137-145) mmol/L Potassium 4.2 (3.4-5.1) mmol/L Chloride 102 (98-107) mmol/L Carbon Dioxide 20 L (22-32) mmol/L BUN 28 H (9-20) mg/dL Creatinine 1.37 H (0.66-1.25) mg/dL Estimated GFR 50 L (>60) mL/min BUN/Creatinine Ratio 20.4 (6-22) Glucose 123 H (80-110) mg/dL Lactate 5.0 H* (0.7-2.1) mmol/L Calcium 8.8 (8.4-10.2) mg/dL Magnesium 1.9 (1.6-2.3) mg/dL Total Bilirubin 0.9 (0.2-1.3) mg/dL AST 106 H (17-59) IU/L ALT 51 H (<50) IU/L Alkaline Phosphatase 95 (38-126) U/L Total Creatine Kinase 2434 H (55-170) U/L Troponin I 0.085 H (0.01-0.034) ng/mL NT-Pro-B Natriuret Pep 2140 H (<450) pg/mL Total Protein 7.9 (6.3-8.2) g/dL Albumin 4.6 (3.5-5.0) g/dL Globulin 3.3 (1.7-4.1) g/dL Albumin/Globulin Ratio 1.4 (1.0-2.8) Lipase 102 (23-300) U/L TSH 2.13 (0.47-4.68) uIU/mL Urine RBC 1-5/hpf (0-5/HPF) Urine WBC None seen (0-5/HPF) Ur Squamous Epith Cells None seen (0-5/HPF) Urine Bacteria None seen (None) Ur Culture Indicated? Cult not indicated Vol Urine Centrifuged 10ml (spun) Ethyl Alcohol < 10 ( - 10) mg/dL SARS-CoV-2 (PCR) (Negative) Influenza A (RT-PCR) (NEGATIVE) Influenza B (RT-PCR) (NEGATIVE) RSV (PCR) (Negative) Blood Type O Positive Antibody Screen Negative 03/20/24 03/20/24 Range/Units 11:55 13:15 WBC (4.5-11.0) X10^3/uL RBC (4.5-5.9) X10^6/uL Hgb (13.5-17.5) g/dL Hct (41-53) % MCV (80-100) fL MCH (26-34) PG MCHC (30-36) % RDW (11.6-14.8) % Plt Count (150-400) X10^3/uL Neut % (Auto) (50-75) % Lymph % (Auto) (25-40) % Mcdonald % (Auto) (3-14) % Eos % (Auto) (2-4) % Baso % (Auto) (0-2) % Neut # (Auto) (7316-3935) /uL Lymph # (Auto) (6694-5367) /uL Mcdonald # (Auto) (0-900) /uL Eos # (Auto) (0-450) /uL Baso # (Auto) (0-100) /uL PT (9.4-12.5) SECONDS INR (0.9-1.3) APTT (25.1-36.5) SECONDS D-Dimer (<500) ng/ml Sodium (137-145) mmol/L Potassium (3.4-5.1) mmol/L Chloride (98-107) mmol/L Carbon Dioxide (22-32) mmol/L BUN (9-20) mg/dL Creatinine (0.66-1.25) mg/dL Estimated GFR (>60) mL/min BUN/Creatinine Ratio (6-22) Glucose (80-110) mg/dL Lactate 1.7 (0.7-2.1) mmol/L Calcium (8.4-10.2) mg/dL Magnesium (1.6-2.3) mg/dL Total Bilirubin (0.2-1.3) mg/dL AST (17-59) IU/L ALT (<50) IU/L Alkaline Phosphatase (38-126) U/L Total Creatine Kinase (55-170) U/L Troponin I (0.01-0.034) ng/mL NT-Pro-B Natriuret Pep (<450) pg/mL Total Protein (6.3-8.2) g/dL Albumin (3.5-5.0) g/dL Globulin (1.7-4.1) g/dL Albumin/Globulin Ratio (1.0-2.8) Lipase (23-300) U/L TSH (0.47-4.68) uIU/mL Urine RBC (0-5/HPF) Urine WBC (0-5/HPF) Ur Squamous Epith Cells (0-5/HPF) Urine Bacteria (None) Ur Culture Indicated? Vol Urine Centrifuged Ethyl Alcohol ( - 10) mg/dL SARS-CoV-2 (PCR) Negative (Negative) Influenza A (RT-PCR) Flu a negative (NEGATIVE) Influenza B (RT-PCR) Flu b negative (NEGATIVE) RSV (PCR) Negative (Negative) Blood Type Antibody Screen Urine Dip Bedside Urine Glucose Negative Bedside Urine Bilirubin - Negative Bedside Urine Ketone - Negative Urine Specific [place] 1.015 Bedside Urine Occult Blood +++ Bedside Urine pH 6.5 Bedside Urine Protein +/- 15 Bedside Urine Urobilinogen - Negative Bedside Urine Nitrite - Negative Bedside Urine Leukocytes - Negative Esterase Imaging Data CT scan - chest: Radiologist Impression: PROCEDURE: CT ANGIO CHEST PE PROTOCOL INDICATIONS: hypoxia TECHNIQUE: After the administration of intravenous contrast, 2 mm thick sections acquired from the pulmonary apices to the posterior costophrenic angles. 3-dimensional maximum intensity projection (MIP) coronal and sagittal reformats were then acquired through the thorax. For radiation dose reduction, the following was used: automated exposure control, adjustment of mA and/or kV according to patient size. COMPARISON: None. FINDINGS: Image quality: Diagnostic. Pulmonary arteries: There are definitely pulmonary emboli present. The acuity of the pulmonary emboli is uncertain. There is a very small pulmonary embolus present in the right lower lobe pulmonary artery. For instance, reference image 89 of series 2. The anterior basal segment right lower lobe pulmonary artery is completely occluded by thrombus. The lateral basal segment is also occluded by thrombus. The appearance of these vessels though suggests that the thrombus may be somewhat chronic. There is also nonocclusive thrombus in the posterior basal segment right lower lobe pulmonary artery as well as in the superior segment right lower lobe pulmonary artery. Lower Neck: No enlarged lymph nodes. Thyroid: No thyroid nodules which require sonographic follow up, per consensus guidelines. Axillae: No enlarged lymph nodes. Chest Wall: Unremarkable. Bones: There appears to be degenerative change involving the right sternoclavicular joint with an associated joint effusion. Lungs and Pleura: No pneumothorax or pleural effusions. No consolidation or suspicious nodules. Heart: Heart size is mildly enlarged. There is no reversal of the RV LV ratio. There is no significant reflux into the inferior vena cava. Findings do not suggest acute right heart strain.. No pericardial effusion. Severe 2 vessel coronary artery calcifications. Thoracic Vessels: No aortic aneurysm. Mediastinum and [place]: No enlarged lymph nodes. Esophagus: No wall thickening. No hiatal hernia. Upper Abdomen: Visualized upper abdomen solid organs and bowel loops appear normal. IMPRESSION: There is definitely a significant amount of clot present in the right lower lobe pulmonary arterial tree. However, it is uncertain the level of acuity. This may be subacute or potentially somewhat more chronic. No evidence of right heart strain. Mild cardiomegaly. Coronary artery atherosclerotic calcifications. No acute pulmonary infiltrates. Dictated by: Saud Delgado M.D. on 03/20/2024 at 13:30 CT scan - head: Radiologist Impression: PROCEDURE: CT HEAD/BRAIN WO CON INDICATIONS: falls TECHNIQUE: Noncontrast 4.5 mm thick angled axial sections acquired from the foramen magnum to the vertex, with coronal and sagittal reformats. For radiation dose reduction, the following was used: automated exposure control, adjustment of mA and/or kV according to patient size. COMPARISON: None. FINDINGS: Image quality: Diagnostic. CSF spaces: Basal cisterns are patent. No extra-axial fluid collections. The ventricles are symmetric in size and shape. Brain: No intracranial bleeds or masses. There is cerebral volume loss for age, with resultant ventricular and sulcal prominence. There are periventricular and deep white matter chronic small vessel ischemic changes. There is intracranial internal carotid artery atherosclerosis. Skull and face: Calvarium and visualized facial bones appear intact, without suspicious lesions. Sinuses: Visualized sinuses and mastoids are clear. IMPRESSION: No acute intracranial pathology. Dictated by: Saud Delgado M.D. on 03/20/2024 at 13:24 Chest x-ray: Radiologist Impression: PROCEDURE: XR CHEST 1V INDICATIONS: sob TECHNIQUE: One view of the chest was acquired. COMPARISON: [facility], CT, CT ANGIO CHEST PE PROTOCOL, 03/20/2024, 12:31. FINDINGS: Surgical changes and devices: None. Lungs and pleura: No dense airspace disease or pleural effusions. Low lung volumes. Mediastinum: Borderline cardiomegaly Bones and chest wall: Degenerative changes IMPRESSION: Limited single view radiograph with low lung volumes. No acute abnormality Dictated by: Ulises Borden M.D. on 03/20/2024 at 13:30 Approved by: Ulises Borden M.D. on 03/20/2024 at 13:30 ECG Data Attestation: I personally reviewed and interpreted this ECG as follows: Prior ECG tracings: available for review Interpretation: Atrial fibrillation rate 101 UT interval [address] changes PVC noted right bundle-branch block previous EKGs shows sinus rhythm MDM Narrative Medical decision making narrative: MDM CC: Weakness, falls, possible GI bleed Complicating co-morbidities: Elderly age alcohol use hypertension Medical records reviewed: Previous PCP visit Differential considered: GI bleed rhabdomyolysis sepsis alcohol withdrawal, sepsis Exam documented above, pertinent findings include: Contusion noted left rib Lab Test results independently reviewed as above. Pertinent findings: WBC 15.2, hemoglobin 14.1 hematocrit 43.1 Lactate 5.0-->1.7 Sodium 136 potassium 4.2 chloride 102 carbon dioxide 20 BUN 28 creatinine 1.37 Bilirubin 0.9 AST 106 ALT 51 CPK 2430 troponin 0.085, BNP 2140 D-dimer 2228 Urinalysis negative Viral panel negative Independently reviewed EKG as above New onset atrial fibrillation Imaging studies independently reviewed: Head CT no intracranial hemorrhage CT chest right lower lobe pulmonary embolism and cardiomegaly Consultations: Dr. Womack updated patient's symptoms test results Treatments: Sepsis fluids Protonix Zosyn Lovenox Re-evaluations: Patient remains awake alert oriented Discussion: Patient 88-year-old male presents today after ground level fall. He did lay on the ground all night he has mild rhabdomyolysis with CPK of 2400. However he was found to have new onset atrial fibrillation and some mild hypoxia. D-dimer is found to be significantly elevated as well. CT does show right lower lobe pulmonary embolism. Initially lactate was the 1st laboratory value to come back at critical value of 5.0 sepsis fluids were initiated blood cultures pending he was empirically given Zosyn. However no real source of infection found he has not having infectious symptoms he is mild leukocytosis of 15 repeat lactate quickly improved to 1.7. Urinalysis is negative. At this time it does not sound like he falls frequently it sounds like he did fall last night. No real contraindication to anticoagulation at this time. No active GI bleeding guaiac negative and hemoglobin stable. He is given Lovenox for anticoagulation He was started on sepsis fluids due to elevated lactate and CPK however BNP is also slightly elevated so fluids were slowed down. Discharge Plan Departure Patient Disposition: Admitted As Inpatient Clinical Impression: Pulmonary emboli, Atrial fibrillation, Rhabdomyolysis Admit Date/Time: 03/20/24 13:59 Admit Provider: Gera Womack
--- NOTE | 2024-03-20 12:00 | PC.NURSE ---
Pt reports feeling weak and tired. Feeling constipated. Thinks he may have an ileus
[2024-03-20 12:13] LABS: INR 0.9 (0.9-1.3); Prothrombin Time 10.6 SECONDS (9.4-12.5)
--- NOTE | 2024-03-20 12:14 | DI.CT.S_ITS ---
PROCEDURE: CT ANGIO CHEST PE PROTOCOL INDICATIONS: hypoxia TECHNIQUE: After the administration of intravenous contrast, 2 mm thick sections acquired from the pulmonary apices to the posterior costophrenic angles. 3-dimensional maximum intensity projection (MIP) coronal and sagittal reformats were then acquired through the thorax. For radiation dose reduction, the following was used: automated exposure control, adjustment of mA and/or kV according to patient size. COMPARISON: None. FINDINGS: Image quality: Diagnostic. Pulmonary arteries: There are definitely pulmonary emboli present. The acuity of the pulmonary emboli is uncertain. There is a very small pulmonary embolus present in the right lower lobe pulmonary artery. For instance, reference image 89 of series 2. The anterior basal segment right lower lobe pulmonary artery is completely occluded by thrombus. The lateral basal segment is also occluded by thrombus. The appearance of these vessels though suggests that the thrombus may be somewhat chronic. There is also nonocclusive thrombus in the posterior basal segment right lower lobe pulmonary artery as well as in the superior segment right lower lobe pulmonary artery. Lower Neck: No enlarged lymph nodes. Thyroid: No thyroid nodules which require sonographic follow up, per consensus guidelines. Axillae: No enlarged lymph nodes. Chest Wall: Unremarkable. Bones: There appears to be degenerative change involving the right sternoclavicular joint with an associated joint effusion. Lungs and Pleura: No pneumothorax or pleural effusions. No consolidation or suspicious nodules. Heart: Heart size is mildly enlarged. There is no reversal of the RV LV ratio. There is no significant reflux into the inferior vena cava. Findings do not suggest acute right heart strain.. No pericardial effusion. Severe 2 vessel coronary artery calcifications. Thoracic Vessels: No aortic aneurysm. Mediastinum and [place]: No enlarged lymph nodes. Esophagus: No wall thickening. No hiatal hernia. Upper Abdomen: Visualized upper abdomen solid organs and bowel loops appear normal. IMPRESSION: There is definitely a significant amount of clot present in the right lower lobe pulmonary arterial tree. However, it is uncertain the level of acuity. This may be subacute or potentially somewhat more chronic. No evidence of right heart strain. Mild cardiomegaly. Coronary artery atherosclerotic calcifications. No acute pulmonary infiltrates. Dictated by: Saud Delgado M.D. on 03/20/2024 at 13:30 Approved by: Saud Delgado M.D. on 03/20/2024 at 13:36
--- NOTE | 2024-03-20 12:14 | DI.CT.S_ITS ---
PROCEDURE: CT HEAD/BRAIN WO CON INDICATIONS: falls TECHNIQUE: Noncontrast 4.5 mm thick angled axial sections acquired from the foramen magnum to the vertex, with coronal and sagittal reformats. For radiation dose reduction, the following was used: automated exposure control, adjustment of mA and/or kV according to patient size. COMPARISON: None. FINDINGS: Image quality: Diagnostic. CSF spaces: Basal cisterns are patent. No extra-axial fluid collections. The ventricles are symmetric in size and shape. Brain: No intracranial bleeds or masses. There is cerebral volume loss for age, with resultant ventricular and sulcal prominence. There are periventricular and deep white matter chronic small vessel ischemic changes. There is intracranial internal carotid artery atherosclerosis. Skull and face: Calvarium and visualized facial bones appear intact, without suspicious lesions. Sinuses: Visualized sinuses and mastoids are clear. IMPRESSION: No acute intracranial pathology. Dictated by: Saud Delgado M.D. on 03/20/2024 at 13:24 Approved by: Saud Delgado M.D. on 03/20/2024 at 13:30
[2024-03-20 12:15] LABS: PTT Partial Thromboplastin Tim 28 SECONDS (25.1-36.5)
[2024-03-20 12:18] LABS: Creatine Kinase 2434 U/L (55-170)
--- NOTE | 2024-03-20 12:21 | DI.RAD.S_ITS ---
PROCEDURE: XR CHEST 1V INDICATIONS: sob TECHNIQUE: One view of the chest was acquired. COMPARISON: [facility], CT, CT ANGIO CHEST PE PROTOCOL, 03/20/2024, 12:31. FINDINGS: Surgical changes and devices: None. Lungs and pleura: No dense airspace disease or pleural effusions. Low lung volumes. Mediastinum: Borderline cardiomegaly Bones and chest wall: Degenerative changes IMPRESSION: Limited single view radiograph with low lung volumes. No acute abnormality Dictated by: Ulises Borden M.D. on 03/20/2024 at 13:30 Approved by: Ulises Borden M.D. on 03/20/2024 at 13:30
[2024-03-20 12:23] LABS: Troponin I 0.085 ng/mL (0.01-0.034)
[2024-03-20] MEDS: PIPERACILLIN/TAZO 4.5 GM in SODIUM CHLORIDE 0.9% 100 ML IV (12:24)
[2024-03-20] MEDS: SODIUM CHLORIDE 0.9% 1,973.13 ML 657.71 ML IV (12:25)
[2024-03-20 12:26] LABS: Urine Volume 10mL (spun)
[2024-03-20 12:31] LABS: Bacteria Urine None Seen; Culture Indicated Urine Cult Not Indicated; RBC Urine 1-5/HPF (0-5/HPF); Squamous Epithelial Cell Urine None Seen (0-5/HPF); WBC Urine None Seen (0-5/HPF)
[2024-03-20 12:31] LABS: Ethanol (ETOH) < 10 mg/dL; Magnesium 1.9 mg/dL (1.6-2.3)
[2024-03-20 12:33] LABS: D Dimer 2228 ng/ml (<500)
[2024-03-20 12:41] LABS: NT-proBNP (BNP-Adult 18+) 2140 pg/mL (<450)
[2024-03-20 12:44] LABS: Influenza A - CEPHEID Flu A NEGATIVE (NEGATIVE); Influenza B - CEPHEID Flu B NEGATIVE (NEGATIVE); Respiratory Syncytial Virus Negative (Negative)
[2024-03-20 12:45] LABS: COVID-19 CEPHEID 4-PLEX PCR Negative (Negative)
[2024-03-20 13:06] LABS: Reflexed Lactate in 2 Hours Y
[2024-03-20 13:08] LABS: Thyroid Stimulating Hormone 2.13 uIU/mL (0.47-4.68)
--- NOTE | 2024-03-20 13:20 | PC.NURSE ---
Pt urinating frequently. Placed condom catheter.
[2024-03-20 13:37] LABS: Lactate 2HR (Lactic Acid Rflx) 1.7 mmol/L (0.7-2.1)
--- NOTE | 2024-03-20 14:07 | DI.ECHO.S_ITS ---
[facility]+ [facility] : : [address] : : [place] : : [id number] : : Phone: [phone] Echocardiogram Report + + :Name: LEONEL PETTIT Study Date: 03/20/2024 Height: 66 in : :[facility] ReadingLocation: Weight: 145 lb : : Gender: Male BSA: 1.7 m2 : :: 1935 Age: 88 yrs BP: 143/90 mmHg: :Reason For Study: ATRIAL FIBRILLATION/ PE : :Ordering Physician: DANNI, : :FRANCSICA Heredia Performed By: Julia Hernandez : :Referring: FRANCISCA RAZO : + + Interpretation Summary The ejection fraction is estimated to be 50-55%. There has been no significant change since the previous exam. There is a significant dyssynchronous contraction pattern, consistent with a conduction abnormality. Diastolic parameters suggest a relaxation abnormality of the left ventricle, consistent with probable normal filling pressures. The right ventricle is borderline dilated. The right ventricular systolic function is normal. The right ventricular systolic pressure is estimated to be at least 53 mmHg based on an estimated right atrial pressure of 8 mm Hg. The left atrium is moderately dilated. The right atrium is moderately dilated. There is mild to moderate tricuspid regurgitation. The ascending aorta is mildly enlarged. Procedure: A two-dimensional transthoracic echocardiogram with color flow and Doppler was performed. The study quality was technically adequate. Comparison is made with the echocardiogram of 11/12/2020. EKG artifact throughout exam. The heart rate ranged between 78-100 bpm during the study. Left Ventricle: The left ventricle is normal in size and wall thickness. The ejection fraction is estimated to be 50-55%. There has been no significant change since the previous exam. There is a significant dyssynchronous contraction pattern, consistent with a conduction abnormality. Diastolic parameters suggest a relaxation abnormality of the left ventricle, consistent with probable normal filling pressures. Right Ventricle: The right ventricle is borderline dilated. The right ventricular systolic function is normal. Atria: The left atrium is moderately dilated. The right atrium is moderately dilated. There is no Doppler evidence for an interatrial shunt. Mitral Valve: The mitral valve leaflets appear mildly thickened, but open well. There is mild mitral annular calcification. There is trace mitral regurgitation. Aortic Valve: The aortic valve is trileaflet. The aortic valve is slightly calcified. There is no aortic valve stenosis. No aortic regurgitation is present. Tricuspid Valve: The tricuspid valve leaflets are thin and pliable. There is mild to moderate tricuspid regurgitation. The right ventricular systolic pressure is estimated to be at least 53 mmHg based on an estimated right atrial pressure of 8 mm Hg. Pulmonic Valve: The pulmonic valve leaflets are thin and pliable; valve motion is normal. There is trace pulmonic regurgitation. Great Vessels: The aortic root is normal size. The ascending aorta is mildly enlarged. The IVC is dilated (diameter is greater than 2.1 cm) yet it collapses greater than 50% with a sniff. This suggests a right atrial pressure of 8 mm Hg. Pericardium/ Pleura There is no pericardial effusion. There is no pleural effusion. MMode/2D Measurements & Calculations LVIDd: 5.5 cm LVOT diam: 2.2 cm LVIDs: 3.9 cm Ao root diam: 3.7 cm FS: 29.2 % asc Aorta Diam: 3.7 cm EPSS: 0.74 cm Ao Arch Diam (Prox Trans): 2.8 cm IVSd: 0.77 cm LVPWd: 0.82 cm LV donovan. diameter/BSA (cm/m^2): 3.2 LV sys. diameter/BSA (cm/m^2): 2.2 LA A2 area: 23.2 cm2 RA long axis: 5.7 cm LA A4 area: 22.6 cm2 RA area: 23.6 cm2 LA length (vol): 5.6 cm RA vol: 83.0 ml LA vol: 79.2 ml RA : 47.6 ml/m2 LA vol index: 45.4 ml/m2 IVC diam: 2.3 cm RVD1 (basal): 4.0 cm RVD2 (mid): 3.2 cm TAPSE: 2.4 cm Doppler Measurements & Calculations Ao V2 max: 159.7 cm/sec LVOT Max Beto: 83.9 cm/sec Ao V2 mean: 115.7 cm/sec LV V1 max P.8 mmHg Ao max P.2 mmHg LV V1 VTI: 15.7 cm Ao mean P.9 mmHg WANG(I,D): 2.1 cm2 Ao V2 VTI: 28.7 cm WANG(V,D): 2.0 cm2 sev ratio: 0.55 WANG indexed to BSA (cm^2/m^2): 1.2 MV E max beto: 59.0 cm/sec TR max beto: 337.1 cm/sec MV A max beto: 84.4 cm/sec TR max P.4 mmHg MV E/A: 0.70 PA V2 max: 90.5 cm/sec Med Peak E' Beto: 8.2 cm/sec PA V2 mean: 59.2 cm/sec E/E' med: 7.2 PA mean P.6 mmHg Lat Peak E' Beto: 8.8 cm/sec PA pr(Accel): 24.2 mmHg E/E' lat: 6.7 E/e' average: 6.9 MV dec time: 0.20 sec SV(LVOT): 61.2 ml Reading Physician:07:03 PM
--- NOTE | 2024-03-20 14:07 | PM.HP.IH.1 ---
History of Present Illness History of Present Illness Date Patient Seen: 03/20/24 Time Patient Seen: 14:07 Chief complaint: Fall, Weakness Narrative: 88-year-old male, well known to me but not seen for about a year, apparently fell evening prior to admission was unable to get himself up off the ground eventually in the morning crawled to the phone and dial 911. Patient reports felt like he had food poisoning had lot of nausea then vomiting and ended up on the ground and could not get himself up and so he slept the night on the floor. EMS found him on the floor mildly hypoxic and certainly globally weak. Patient was brought to the ER where he was evaluated found to have the mild hypoxia as well as elevated white blood cell count elevated lactate elevated CPK and per ER physician appears to be in new atrial fibrillation (although 12 lead ECG looks like more of an organized supraventricular rhythm). In addition CT angiography of the chest demonstrates pulmonary embolism on the right side difficult to ascertain exactly where (see Radiology interpretation) Patient was self denies any other particular symptoms. Does not have any pain. He was not had any fever chills or infectious kind of symptoms. 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, reading and other Smoking Status: Never smoker Tobacco: How many years used: 0 second hand exposure: No alcohol intake: current substance use type: does not use Meds Home Medications and Allergies Home Medications Medication Instructions Recorded Confirmed Type ASPIRIN (#ASPIRIN) 81 mg PO Q DAY ##0 05/06/11 03/20/24 History ibuprofen 200 mg capsule 200 mg PO Q8H PRN fever or pain 05/09/21 03/20/24 History amlodipine 10 mg tablet 10 mg PO QDAY #90 tabs 03/01/23 03/20/24 Rx atorvastatin 40 mg tablet 40 mg PO QDAY #90 tabs 03/01/23 03/20/24 Rx pantoprazole 40 mg tablet,delayed 40 mg PO QAM PRN GERD #90 tabs 06/21/23 03/20/24 Rx release (Protonix) Allergies Allergy/AdvReac Type Severity Reaction Status Date / Time No Known Drug Allergies Allergy Verified 03/01/23 10:13 Review of Systems Review of Systems ROS: Yes All systems reviewed with the patient and are negative except as otherwise documented Exam Vital Signs (past 8 hours): - 03/20/24 11:11 03/20/24 11:11 03/20/24 11:15 Temperature 98.4 F Pulse Rate 73 95 H Respiratory Rate 16 Blood Pressure 152/85 H 152/85 H Pulse Oximetry 95 Oxygen Delivery Method Nasal Cannula Oxygen Flow Rate 2 03/20/24 11:30 03/20/24 11:30 03/20/24 12:00 Temperature Pulse Rate 96 H 119 H Respiratory Rate 24 29 H Blood Pressure 164/79 H Pulse Oximetry 100 94 Oxygen Delivery Method Nasal Cannula Oxygen Flow Rate 2 03/20/24 12:00 03/20/24 12:43 03/20/24 13:00 Temperature Pulse Rate 96 H 93 H Respiratory Rate 27 H 27 H Blood Pressure 143/90 H Pulse Oximetry 89 L 92 Oxygen Delivery Method Room Air Oxygen Flow Rate Oxygen Delivery Method Room Air Oxygen Flow Rate 2 Narrative Exam Narrative: Elderly male who looks acutely ill lying in his hospital bed HEENT-normocephalic atraumatic PERRLA EOMs intact Neck-no bruits Lungs-clear with good breath sounds Heart-irregularly irregular no murmur rub or gallop Abdomen-benign with positive bowel tones nontender nondistended Extremities-no cyanosis clubbing or edema Objective Imaging CT scan - chest: Radiologist's impression: [address] [address] [address] Scan Report Signed Patient: Deon Gonzalez MR#: [id number] : 1935 Acct:[id number] Age/Sex: 88 / M Date of Service: 03/20/24 Loc: ED Accession Number: [id number] Procedure: CT angio chest PE protocol Ordering Provider: Virginia Upton D.O. PROCEDURE: CT ANGIO CHEST PE PROTOCOL INDICATIONS: hypoxia TECHNIQUE: After the administration of intravenous contrast, 2 mm thick sections acquired from the pulmonary apices to the posterior costophrenic angles. 3-dimensional maximum intensity projection (MIP) coronal and sagittal reformats were then acquired through the thorax. For radiation dose reduction, the following was used: automated exposure control, adjustment of mA and/or kV according to patient size. COMPARISON: None. FINDINGS: Image quality: Diagnostic. Pulmonary arteries: There are definitely pulmonary emboli present. The acuity of the pulmonary emboli is uncertain. There is a very small pulmonary embolus present in the right lower lobe pulmonary artery. For instance, reference image 89 of series 2. The anterior basal segment right lower lobe pulmonary artery is completely occluded by thrombus. The lateral basal segment is also occluded by thrombus. The appearance of these vessels though suggests that the thrombus may be somewhat chronic. There is also nonocclusive thrombus in the posterior basal segment right lower lobe pulmonary artery as well as in the superior segment right lower lobe pulmonary artery. Lower Neck: No enlarged lymph nodes. Thyroid: No thyroid nodules which require sonographic follow up, per consensus guidelines. Axillae: No enlarged lymph nodes. Chest Wall: Unremarkable. Bones: There appears to be degenerative change involving the right sternoclavicular joint with an associated joint effusion. Lungs and Pleura: No pneumothorax or pleural effusions. No consolidation or suspicious nodules. Heart: Heart size is mildly enlarged. There is no reversal of the RV LV ratio. There is no significant reflux into the inferior vena cava. Findings do not suggest acute right heart strain.. No pericardial effusion. Severe 2 vessel coronary artery calcifications. Thoracic Vessels: No aortic aneurysm. Mediastinum and [place]: No enlarged lymph nodes. Esophagus: No wall thickening. No hiatal hernia. Upper Abdomen: Visualized upper abdomen solid organs and bowel loops appear normal. IMPRESSION: There is definitely a significant amount of clot present in the right lower lobe pulmonary arterial tree. However, it is uncertain the level of acuity. This may be subacute or potentially somewhat more chronic. No evidence of right heart strain. Mild cardiomegaly. Coronary artery atherosclerotic calcifications. No acute pulmonary infiltrates. Labs 03/20/24 11:00 03/20/24 11:00 Labs: Laboratory Results - last 24 hr 03/20/24 03/20/24 03/20/24 11:00 11:26 11:40 WBC 15.2 H RBC 4.94 Hgb 14.1 Hct 43.1 MCV 87.4 MCH 28.7 MCHC 32.8 RDW 15.8 H Plt Count 199 Neut % (Auto) 51.7 Lymph % (Auto) 44.0 H [place] % (Auto) 4.0 Eos % (Auto) 0.0 L Baso % (Auto) 0.3 Neut # (Auto) 7800 H Lymph # (Auto) 6700 H [place] # (Auto) 600 Eos # (Auto) 0 Baso # (Auto) 0 PT 10.6 INR 0.9 APTT 28 D-Dimer 2228 H Sodium 136 L Potassium 4.2 Chloride 102 Carbon Dioxide 20 L BUN 28 H Creatinine 1.37 H Estimated GFR 50 L BUN/Creatinine Ratio 20.4 Glucose 123 H Lactate 5.0 H* Calcium 8.8 Magnesium 1.9 Total Bilirubin 0.9 AST 106 H ALT 51 H Alkaline Phosphatase 95 Total Creatine Kinase 2434 H Troponin I 0.085 H NT-Pro-B Natriuret Pep 2140 H Total Protein 7.9 Albumin 4.6 Globulin 3.3 Albumin/Globulin Ratio 1.4 Lipase 102 TSH 2.13 Urine RBC 1-5/hpf Urine WBC None seen Ur Squamous Epith Cells None seen Urine Bacteria None seen Ur Culture Indicated? Cult not indicated Vol Urine Centrifuged 10ml (spun) Ethyl Alcohol < 10 SARS-CoV-2 (PCR) Influenza A (RT-PCR) Influenza B (RT-PCR) RSV (PCR) Blood Type O Positive Antibody Screen Negative 03/20/24 03/20/24 11:55 13:15 WBC RBC Hgb Hct MCV MCH MCHC RDW Plt Count Neut % (Auto) Lymph % (Auto) [place] % (Auto) Eos % (Auto) Baso % (Auto) Neut # (Auto) Lymph # (Auto) [place] # (Auto) Eos # (Auto) Baso # (Auto) PT INR APTT D-Dimer Sodium Potassium Chloride Carbon Dioxide BUN Creatinine Estimated GFR BUN/Creatinine Ratio Glucose Lactate 1.7 Calcium Magnesium Total Bilirubin AST ALT Alkaline Phosphatase Total Creatine Kinase Troponin I NT-Pro-B Natriuret Pep Total Protein Albumin Globulin Albumin/Globulin Ratio Lipase TSH Urine RBC Urine WBC Ur Squamous Epith Cells Urine Bacteria Ur Culture Indicated? Vol Urine Centrifuged Ethyl Alcohol SARS-CoV-2 (PCR) Negative Influenza A (RT-PCR) Flu a negative Influenza B (RT-PCR) Flu b negative RSV (PCR) Negative Blood Type Antibody Screen Assessment & Plan Assessment & Plan narrative: 1. Acute pulmonary embolism-okay to place patient on Lovenox initially but I think I will start him on Eliquis 10 mg b.i.d. to be followed by 5 mg b.i.d.. Patient was not have a strong history of falling I think it was safe to anticoagulate him. Fortunately he does not appear to have any significant cardiovascular compromise other than mild hypoxia at this time. Will also obtain echocardiography to look for evidence of significant right heart strain etcetera. This is in the setting of the potentially new atrial fibrillation Also will obtain lab work for potential hypercoagulable defects 2. Rhabdomyolysis-patient was elevated CPK likely secondary to being on the ground for an extended time. Numbers have not super high but will need to be monitored carefully. Given the length of time between when he fell and the blood draw I do not think he needs repeat CPK later today but can be checked again in the morning. Continue with some gentle fluid rehydration to maintain renal function in the setting of rhabdomyolysis 3. Question atrial fibrillation-continue patient on telemetry for monitoring. If indeed he was in atrial fibrillation he seems to be rate controlled and that is likely secondary to the pulmonary embolism. Will check echocardiography and he was going to be anticoagulated anyway because of the PE. Plan to get 12 lead ECG tomorrow in addition and of course he echo will be more definitive regarding his supraventricular rhythm 4. Hypertension-continue patient's usual meds 5. Hyperlipidemia-continue patient's usual meds 6. History coronary artery disease-no evidence of active coronary disease at this time but will continue monitor and continue patient's meds as above 7. VTE prophylaxis-not indicated given the diagnose so pulmonary embolism. He will be fully anticoagulated 8. Code status-patient requests do not resuscitate in the event of a sudden cardiac or respiratory arrest which is not anticipated at this time 9. Question sepsis-I think sepsis has been ruled out in this situation. He had presented with an elevated lactate level but otherwise no evidence of infectious etiology or sepsis, and will not continue treatment for possible sepsis at this time including no antibiotics and will reduce his IV fluid resuscitation which was initiated in the emergency department 10. Disposition-patient does not think he can go home and continue to live independently. Obviously he was very ill right now and I do believe over the course of the next 24-72 hours he will improve to the point where he likely can return home but may need interval placement depending on his clinical course. Time-Based Coding :: [TOTAL MINUTES] spent with patient and on the chart (including review of chart, obtaining history, exam, reviewing outside data, placing orders, documenting exam and treatment plan, and counseling patient) on [DATE]. 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
[2024-03-20] MEDS: ENOXAPARIN 100 MG/ML SYRINGE 65 MG SUBCUT (14:21)
--- NOTE | 2024-03-20 16:08 | PT-IP ANOTE ---
PT consult received. Pt with pulmonary embolis of unknown chronicity. His D-dimer is high. Will initiate OOB and PT as appropriate next date. Of note, INR is 0.9 in setting of embolis.
--- NOTE | 2024-03-20 18:08 | PC.NURSE ---
Patient is resting comfortably, ate some pudding. Last bowel movement two days ago. Patient was found down on the floor at home and was down for hours. He is admitted with a PE, lung sounds are clear but diminished. Patient is on RA at 94%. Resting comfortably, update given to patients friend, with his consent. He is resting comfortably now.
[2024-03-20] MEDS: APIXABAN 5 MG TABLET 10 MG PO (20:05)
[2024-03-20] MEDS: OXYCODONE IR 5 MG TABLET PO (20:05)
[2024-03-21] VITALS (8 sets, daily range): BP systolic 123–138; BP diastolic 60–76; PULSE 71–81; RESP 17–20; TEMP 37–37.4; O2SAT 91–98
[2024-03-21 06:04] LABS: Add Manual Diff / Slide Review NO; Basophils Absolute Auto 0 /uL (0-100); Basophils Percent Auto 0.3 % (0-2); Eosinophils Absolute Auto 100 /uL (0-450); Eosinophils Percent Auto 0.7 % (2-4); Hematocrit 34.7 % (41-53); Hemoglobin 11.3 g/dL (13.5-17.5); Lymphocytes Absolute Auto 5600 /uL (1100-4500); Lymphocytes Percent Auto 53.9 % (25-40); Mean Corpuscular HGB Conc 32.6 % (30-36); Mean Corpuscular Volume 88.8 fL (80-100); Monocytes Absolute Auto 400 /uL (0-900); Monocytes Percent Auto 4.2 % (3-14); Neutrophils Absolute Auto 4300 /uL (1500-7000); Neutrophils Percent Auto 40.9 % (50-75); Platelet Count 145 X10^3/uL (150-400); Red Blood Cell Count 3.91 X10^6/uL (4.5-5.9); Red Cell Distribution Width 15.4 % (11.6-14.8); White Blood Cell Count 10.5 X10^3/uL (4.5-11.0)
[2024-03-21 06:20] LABS: BUN Creatinine Ratio 16.1 (6-22); Blood Urea Nitrogen 20 mg/dL (9-20); Calcium 7.8 mg/dL (8.4-10.2); Carbon Dioxide 23 mmol/L (22-32); Chloride 108 mmol/L (98-107); Estimated Glomerular Filt Rate 56 mL/min (>60); Glucose 89 mg/dL (80-110); HEMOLYSIS < 15 (0-50); Potassium 3.3 mmol/L (3.4-5.1); Sodium 137 mmol/L (137-145)
[2024-03-21] MEDS: PANTOPRAZOLE DR 40 MG TABLET PO (06:26)
[2024-03-21 06:36] LABS: Creatine Kinase 1996 U/L (55-170)
--- NOTE | 2024-03-21 06:45 | P.PN_ITS ---
Subjective Subjective Date Patient Seen: 03/21/24 Time Patient Seen: 06:45 Interval history: Uneventful night Labs this morning show mild hypokalemia. Drop in hemoglobin hematocrit, most likely secondary to some delusional factor. Improvement in creatinine with the IV fluids as well Remains off oxygen with 98% saturation when last checked Says he does not feel any better but clearly he seems to be better. He was more interactive etcetera 12 lead ECG shows sinus rhythm with PACs this morning Exam Vital Signs (past 8 hours): - 03/21/24 00:00 03/21/24 05:52 Temperature 98.6 F 98.6 F Pulse Rate 80 75 Respiratory Rate 18 18 Blood Pressure 128/60 134/76 Pulse Oximetry 97 98 Oxygen Flow Rate 0 0 Oxygen Delivery Method Room Air Oxygen Flow Rate 0 Objective Labs 03/21/24 05:40 03/21/24 05:40 Labs: Laboratory Results - last 24 hr 03/20/24 03/20/24 03/20/24 11:00 11:26 11:40 WBC 15.2 H RBC 4.94 Hgb 14.1 Hct 43.1 MCV 87.4 MCH 28.7 MCHC 32.8 RDW 15.8 H Plt Count 199 Neut % (Auto) 51.7 Lymph % (Auto) 44.0 H [place] % (Auto) 4.0 Eos % (Auto) 0.0 L Baso % (Auto) 0.3 Neut # (Auto) 7800 H Lymph # (Auto) 6700 H [place] # (Auto) 600 Eos # (Auto) 0 Baso # (Auto) 0 PT 10.6 INR 0.9 APTT 28 D-Dimer 2228 H Sodium 136 L Potassium 4.2 Chloride 102 Carbon Dioxide 20 L BUN 28 H Creatinine 1.37 H Estimated GFR 50 L BUN/Creatinine Ratio 20.4 Glucose 123 H Lactate 5.0 H* Calcium 8.8 Magnesium 1.9 Total Bilirubin 0.9 AST 106 H ALT 51 H Alkaline Phosphatase 95 Total Creatine Kinase 2434 H Troponin I 0.085 H NT-Pro-B Natriuret Pep 2140 H Total Protein 7.9 Albumin 4.6 Globulin 3.3 Albumin/Globulin Ratio 1.4 Lipase 102 TSH 2.13 Urine RBC 1-5/hpf Urine WBC None seen Ur Squamous Epith Cells None seen Urine Bacteria None seen Ur Culture Indicated? Cult not indicated Vol Urine Centrifuged 10ml (spun) Ethyl Alcohol < 10 SARS-CoV-2 (PCR) Influenza A (RT-PCR) Influenza B (RT-PCR) RSV (PCR) Blood Type O Positive Antibody Screen Negative 03/20/24 03/20/24 03/21/24 11:55 13:15 05:40 WBC 10.5 RBC 3.91 L Hgb 11.3 L Hct 34.7 L MCV 88.8 MCH 29.0 MCHC 32.6 RDW 15.4 H Plt Count 145 L Neut % (Auto) 40.9 L Lymph % (Auto) 53.9 H [place] % (Auto) 4.2 Eos % (Auto) 0.7 L Baso % (Auto) 0.3 Neut # (Auto) 4300 Lymph # (Auto) 5600 H [place] # (Auto) 400 Eos # (Auto) 100 Baso # (Auto) 0 PT INR APTT D-Dimer Sodium 137 Potassium 3.3 L Chloride 108 H Carbon Dioxide 23 BUN 20 Creatinine 1.24 Estimated GFR 56 L BUN/Creatinine Ratio 16.1 Glucose 89 Lactate 1.7 Calcium 7.8 L Magnesium Total Bilirubin AST ALT Alkaline Phosphatase Total Creatine Kinase 1996 H Troponin I NT-Pro-B Natriuret Pep Total Protein Albumin Globulin Albumin/Globulin Ratio Lipase TSH Urine RBC Urine WBC Ur Squamous Epith Cells Urine Bacteria Ur Culture Indicated? Vol Urine Centrifuged Ethyl Alcohol SARS-CoV-2 (PCR) Negative Influenza A (RT-PCR) Flu a negative Influenza B (RT-PCR) Flu b negative RSV (PCR) Negative Blood Type Antibody Screen [facility] Medical History Chronic renal failure, stage 3a Vision disorder Hearing loss Osteoarthritis Hay fever (~1963) Abnormal chest x-ray (~1960) Shoulder pain (~2015) Chronic back pain Rosacea (~1999) Chicken pox (~194) Cataract (~2011) GI bleeding (~2013) Chronic rhinitis (02/08/02) Gastroesophageal reflux disease without esophagitis (04/22/15) Essential hypertension Tinnitus Mixed hyperlipidemia 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 Acute pulmonary embolism-continue with Eliquis orally. Not hypoxic any longer. Blood work pending regarding possible hypercoagulable status 2. Rhabdomyolysis-improvement in CPK. Normalization of renal function. No concerns at this time. Ambulate as patient was able 3. Atrial fibrillation-back in sinus rhythm clearly. I am not convinced he was ever in atrial fibrillation. Will continue him on telemetry least through the course of the next 24 hours but may discontinue if rhythm is stable 4. Hypertension-stable continue current meds adequate control 5. Disposition-patient to be up with skilled therapies today will see what his functional status is like, which will try into his ability to return to his independent living situation verses alternatives Time-Based Coding :: [TOTAL MINUTES] spent with patient and on the chart (including review of chart, obtaining history, exam, reviewing outside data, placing orders, documenting exam and treatment plan, and counseling patient) on [DATE]. 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
[2024-03-21] MEDS: POTASSIUM CHLORIDE 20 MEQ TAB PO ×2 (07:56→17:27)
[2024-03-21] MEDS: OXYCODONE IR 5 MG TABLET PO (07:56)
[2024-03-21] MEDS: APIXABAN 5 MG TABLET 10 MG PO ×2 (08:05→20:07)
[2024-03-21] MEDS: AMLODIPINE 5 MG TABLET 10 MG PO (08:05)
--- NOTE | 2024-03-21 08:40 | EKG_ITS ---
[place] [id number] [address] Test Date: 2024-03-21 Pat Name: Deon Gonzalez Department: [facility] Room: 207 Gender: Male [employer] Admin: LEONARDO : 1935 Requested By: Order Number: [id number] Reading MD: Yasir Stern Measurements Intervals [place] Rate: 78 P: 78 IN: 180 QRS: 266 QRSD: 152 T: 37 QT: 444 QTc: 506 Interpretive Statements Sinus rhythm with premature atrial complexes Right bundle branch block Electronically Signed On 03-23-2024 20:02:37 PST by Yasir Stern
--- NOTE | 2024-03-21 10:32 | DIET.CONS ---
Dietary Consultation Note Admission Date: 03/20/2024 13:59 Assessment: 88 y M admitted after fall. Dietitian consulted for reduced appetite. Met with patient at bedside who reports a decreased appetite for several months now d/t concerns about GI blockage. Was taking laxatives to help. Reports constipation and constipation with last BM on 03/18. Reports eating a frozen chicken pot pie before hospitalization and within a couple hours was vomiting. Per diet recall usual intake is salad, potatoes, and meat 2x/day. Discussed with RN pt concerns regarding BM and blockage. Patient on regular diet order. Per EMR, pt drinks 2 glasses wine per day. Nutrition focused physical exam: -mild muscle mass loss temporalis, deltoid, interosseous -mild subcutaneous fat loss buccal and orbital fat pads Ht: 167.64 cm Wt: 69 kg BMI: 23.3 UBW: 168 lb per pt in last 3-6 months (76.36 kg) (-10% weight loss within 3-6 months, severe) and 75.41 kg on 03/01/23 per EMR Last BM: 03/18/24 (03/20/24 14:07) MNA: 7 Pipe Score: 16 Diet: 03/20/24 Dinner Heart Healthy Diet Diet Modifications: Nutrition Percent Meal Consumed 30 03/21/24 09:00 Labs: RBC 3.91 X10^6/uL (4.5-5.9) L 03/21/24 05:40 Hgb 11.3 g/dL (13.5-17.5) L 03/21/24 05:40 Hct 34.7 % (41-53) L 03/21/24 05:40 Creatinine 1.24 mg/dL (0.66-1.25) 03/21/24 05:40 Lactate 1.7 mmol/L (0.7-2.1) 03/20/24 13:15 NT-Pro-B Natriuret Pep 2140 pg/mL (<450) H 03/20/24 11:00 Nutrition Diagnosis: Moderate acute Protein Calorie Malnutrition r/t inadequate oral intake as evidenced by patient reducing food intake due to concern of having intestinal blockage, 10% weight loss within 3-6 months (severe), mild muscle mass loss (temporalis, deltoid, interosseous) and mild subcutaneous fat loss (buccal and orbital fat pads) Interventions: -ONS BID -Discussed nutritional management of constipation -Discussed with RN pt concerns regarding BM and blockage EER: [id number] kcals (25-28 kcals/kg per BMI) 85 g protein (1.25 g/kg per PCM) Monitoring/Evaluations: BM, po intakes, ons tolerance Electronically Signed by: Etelvina Mendez 03/21/24 10:32 Clinical Dietitian [address] [id number]
--- NOTE | 2024-03-21 10:40 | PT.IIE ---
Current Diagnoses Other pulmonary embolism without acute cor pulmonale (03/20/24) Surgical History (Last Reviewed 03/20/24 @ 14:09 by Gera Womcak MD) History of skin surgery (~2014) Status post hernia repair Status post knee surgery Medical History (Last Reviewed 03/20/24 @ 14:09 by Gera Womack MD) Abnormal chest x-ray (~1959) Cataract (~2011) Chicken pox (~1942) Chronic back pain Chronic renal failure, stage 3a Chronic rhinitis (02/08/02) Coronary artery disease involving [place] coronary artery of [place] heart without angina pectoris (10/31/10) Essential hypertension Gastroesophageal reflux disease without esophagitis (04/22/15) GI bleeding (~2013) Hay fever (~1963) Hearing loss 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 (10/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) Mixed hyperlipidemia Osteoarthritis Rosacea (~1999) Shoulder pain (~2015) Tinnitus Vision disorder Physical Therapy Inpatient Evaluation/Re-Eval M1 PT/OT-IP Prior Functional Status Start: 03/21/24 12:45 Freq: NEEDED Status: Active Protocol: Document 03/21/24 10:40 AB (Rec: 03/21/24 13:02 AB [id number]) Medical Review Prior Functional Status Medical History Reviewed Yes Communication able to make needs known Mobility and Gait pt stated that he was modified independent with all mobilities and ambulation using 2 walking sticks Activities of Daily Living and IADL's Pt's neighbor assist with taking him out and getting his mail. Pt states does not drive much anymore. Social History Household Members none Living Arrangements House Number of Floors (Floors) Two Floors Number of Stairs To Enter/Railing? 4 steps with right rail ascending to enter the house: pt stays on the main level of the house Home Environment Standard Height Toilet,Walk in Shower Home Equipment Shower Seat without Backrest, Hand Held Shower Additional Social History Comment Pt has two walking sticks pt stated that he does not take a shower but only sponge bathe by the sink M2 PT-IP Current Condition Start: 03/21/24 12:45 Freq: NEEDED Status: Active Protocol: Document 03/21/24 10:40 AB (Rec: 03/21/24 13:02 AB [id number]) Physical Therapy Current Condition Current Condition Evaluation Date 03/21/24 Treatment Diagnosis A-fib; PE; rhabdomyolysis; difficulty in walking Onset Date M3 PT-IP Subjective Start: 03/21/24 12:45 Freq: NEEDED Status: Active Protocol: Document 03/21/24 10:40 AB (Rec: 03/21/24 13:02 [id number]) Subjective Physical Therapy Visit Type Type Treatment Note Visit Start Time 10:40 Visit Stop Time 11:00 Number of STREETCAR CONDUCTOR Visits 0 Physical Therapy Visit Comments Patient Comments agreeable to do PT Therapy Pain Assessment Location Generalized Scale Used pain scale not stated Pain Management Techniques Distraction,Modification of Treatment,Re-positioning M4 PT-IP Mobility and Gait Start: 03/21/24 12:45 Freq: NEEDED Status: Active Protocol: Document 03/21/24 10:40 AB (Rec: 03/21/24 13:02 AB [id number]) PT-Bed Mobility Assessment Supine to Sit Supine to Sit Maximum Assistance,Head of Bed Elevated,Bedrails PT-Transfer Assessment Sit to and From Stand Sit to and from Stand Maximum Assistance,1 Person Assistance,Use of Upper Extremities Equipment Transfer Assistive Device Gait Belt,Front Wheeled Walker Orthotic/Prosthetic Devices or Brace: No Transfers Transfer Destination Chair Transfer Technique ambulated Transfer Ability Level of Assist Maximum Assistance,1 Person Assistance,Use of Upper Extremities Comments Mobility Comments pt supine in bed and agreeable to do PT. obtained PLOF and home set up. pt completed supine to sit max A and max cues. HOB elevated and use of bed rail. pt able to sit on EOB CGA. sit to stand from EOB max A and ambulated in room ~ 20 ft using FWW max A. pt sat on chair. no c/o SOB/ dizziness/lightheadedness. agreed to walk again. sit to stand from chair max A and ambulated 20 ft using fWW max A. pt sat back on chair. Left pt with OT. Gait Assessment Gait Gait Assistance Required: Maximum Assistance Distance (Feet) 20 Able to Maintain Weight Bearing Status Yes During Gait Assistive Devices Assistive Device Gait Belt Orthotic/Prosthetic Devices or Brace: No Gait Deviations General Gait Pattern Decreased Stride Length, Decreased Feet Clearance, Flexed Trunk Factors Limiting Gait Function Factors Limiting Gait Function Decreased Activity Tolerance, Decreased Strength,Difficulty Following Directions,Limited Range of Motion,Pain,Poor Balance,Poor Safety Awareness PT-Balance Assessment Sitting Balance and Reactions Static Sitting Balance Ability Good Dynamic Sitting Balance Ability Fair Standing Balance and Reactions Static Standing Balance Ability Fair Dynamic Standing Balance Ability Poor Device Used FWW M5 PT-IP Objective Assessments Start: 03/21/24 12:45 Freq: NEEDED Status: Active Protocol: Document 03/21/24 10:40 AB (Rec: 03/21/24 13:02 AB [id number]) Orientation Orientation/Cognition Level of Alertness Alert Orientation Name,Place,Situation Safety Awareness Decreased Safety Awareness Memory Description No Deficits Noted Gross Range of Motion Lower Extremity ROM Assessment Within Functional Limits Strength Lower Extremity Strength Hip 3+/5 Knee 4-/5 Coordination Assessment Gross Coordination Gross Coordination WNL Sensation Assessment Sensation Gross Sensation WNL Muscle Tone Muscle Tone WNL Yes M6 PT-IP Treatment Start: 03/21/24 12:45 Freq: NEEDED Status: Active Protocol: Document 03/21/24 10:40 AB (Rec: 03/21/24 13:02 AB [id number]) Physical Therapy Treatment Education Education Provided Safety M7 PT-IP Assessment and Plan Start: 03/21/24 12:45 Freq: NEEDED Status: Active Protocol: Document 03/21/24 10:40 AB (Rec: 03/21/24 13:02 AB [id number]) PT Summary Assessment and Plan Potential Rehabilitation Potential Fair Status of Condition at Evaluation Evolving Summary Impairments Pain,ROM,Strength,Balance, Coordination,Sensation,Tone, Cognition,Bed Mobility, Transfers,Gait,Activity Tolerance Assessment Summary pt is an 88 y/o M who is admitted s/p fall and admitted for A-fib, PE and rhabdomyolyisis. pt requiring max A with all mobilities using fWW and will require 24/ 7 assist. pt will benefit from SNF rehab to improve overall strength and function. Goals Bed Mobility Goal Minimal Assistance Transfer Goal Minimal Assistance,Front Wheeled Walker Gait Goal Minimal Assistance,Front Wheel Walker Gait Distance 50 Other Goals improve bed mobility, transfers, ambulation using FWW ~ 150 ft SBA up/down 4 steps R rail ascending SBA Days to Meet Goals 10 Frequency of Treatment Frequency Of Treatment Once a Day Treatment Plan Physical Therapy Treatment Plan Bed Mobility Training,Transfer Training,Gait Training, Therapeutic Exercise,Balance Retraining,Discharge Planning, Hot or Cold Pack,Neuromuscular Re-ed,Coordination Retraining ,Manual Therapy Precautions Other Precautions fall Recommendations To Nursing Amount of Assist Needed 2 Person Assist Discharge Recommendations PT Discharge Recommendations SNF Rehab Transportation Needs at Discharge Wheelchair/Cabulance
--- NOTE | 2024-03-21 11:27 | OT.IP.EVAL ---
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) Mixed hyperlipidemia Osteoarthritis Rosacea (~1999) Shoulder pain (~2015) Tinnitus Vision disorder Surgical History (Last Reviewed 03/20/24 @ 14:09 by Gera Womack MD) History of skin surgery (~2014) Status post hernia repair Status post knee surgery Occupational Therapy Inpatient Evaluation/Re-Eval M1 PT/OT-IP Prior Functional Status Start: 03/21/24 11:29 Freq: NEEDED Status: Active Protocol: Document 03/21/24 11:30 [facility]3] (Rec: 03/21/24 11:49 [facility]3] [id number]) Medical Review Prior Functional Status Communication I Mobility and Gait Pt states uses walking sticks inside and does not go out much. Activities of Daily Living and IADL's Pt's neighbor assist with taking him out on errands and getting his mail. Pt states does not drive much anymore. Social History Household Members none Living Arrangements House Number of Floors (Floors) Two Floors Number of Stairs To Enter/Railing? 4 steps with right rail going up and stays on the main level per pt. Home Environment Standard Height Toilet,Walk in Shower Home Equipment Shower Seat without Backrest, Hand Held Shower Additional Social History Comment Pt has two walking sticks. M2 OT-IP Current Condition Start: 03/21/24 11:29 Freq: Status: Active Protocol: Document 03/21/24 11:30 [facility]3] (Rec: 03/21/24 11:49 [facility]3] [id number]) Occupational Therapy Current Condition Current Condition Evaluation Date 03/21/24 Treatment Diagnosis Fall , acute PE, Rhabdo Diagnosis Onset Date 03/20/24 M3 OT- IP Subjective and Pain Start: 03/21/24 11:29 Freq: Status: Active Protocol: Document 03/21/24 11:30 [facility]3] (Rec: 03/21/24 11:49 [facility]3] [id number]) OT- Subjective Occupational Therapy Visit Type Type Initial Evaluation Visit Start Time 10:35 Visit Stop Time 11:27 Occupational Therapy Visit Comments Patient Comments Pt agreed to get up. Patient/Caregiver Goals TO get better and agreeable to go to SNF. OT Pain Assessment Pain When Pain Assessed At Rest Pain Present Pain Present Denied Pain M4 OT- IP ADL's Start: 03/21/24 11:29 Freq: Status: Active Protocol: Document 03/21/24 11:30 [facility]3] (Rec: 03/21/24 11:49 [facility]3] [id number]) OT ADT-Amid-Xfzglso Comments OT Self-Feeding Comments Not at meal time. OT ADL-Grooming General Evaluation Grooming Ability Standby Assistance Areas Needing Assistance Retrieving/Set-up of Grooming Items Comments OT Grooming Comments Increased time to open items and complete while sitting in the recliner. OT ADL-Oral Care General Eval Oral Care Ability Standby Assistance OT ADL-Dressing General Eval Lower Body Dressing Ability Moderate Assistance Comments OT Dressing Comments Assist for right sock and for brief management needs. OT ADL-Toileting General Evaluation Toileting Ability Total Assistance Comments OT Toileting Comments Pt has external catheter in place. OT ADL-Bathing Comments OT Bathing Comments Pt states at home has just been sponging off and not been getting into the shower. M5 OT- IP IADL's Start: 03/21/24 11:29 Freq: Status: Active Protocol: Document 03/21/24 11:30 [facility]3] (Rec: 03/21/24 11:49 [facility]3] [id number]) OT-Instrumental Activities of Daily Living Home Safety Awareness Ability to Problem Solve Emergency Unable to Problem Solve Situations Home Safety Comments Pt needing increased time and not able to answer all emergency situations accurately at this time. Pt's friend in the room highly feels that pt is not at his baseline for cognition at this time. Medication Management Medication Management Comments Best to have assist at this time. Money Management Money Management Comments Pt would require assist at this time. Meal Preparation Meal Preparation Comments Pt will need assist. Instructor Creeler Instructor Creeler Comments Pt will need assist. Driving Driving Concerns Identified Regarding Safety Driving Comments Pt is aware that he is not at his baseline and agreed that he is not safe to drive at this time. M6 OT- IP Functional Cognition Start: 03/21/24 11:29 Freq: Status: Active Protocol: Document 03/21/24 11:30 [facility]3] (Rec: 03/21/24 11:49 [facility]3] [id number]) Cognitive Factors Limiting Selfcare Function Cognitive Ability Level of Alertness Alert Patient Orientation Name,Birthday,Month,Year,Place ,Situation Attention Span Ability Capable of Focused Attention, Capable of Sustained Attention ,Unable to Sustain Attention Ability to Follow Commands Able to Follow One Step Commands with Increased Time, Able to Follow One Step Commands with Repetition Memory Description Short Term Impaired,Working Impaired Problem Solving Ability Unable to Identify Errors, Needs Assist to Identify Solutions Executive Function Ability Unable to Organize Plans, Unable to Remember Details Cognitive Tests SLUMS Pt scored 23/30 which implies mild congitive deficits , however this may be affected by pt's acute PE and Rhabdo- it will be beneficial to retest pt again when he medically improves. Pt needing vc for FWW safety. Cognitive Comments Cognitive Assessment Comments Pt needing increased time to answer questions and tends to joke around a lot to cover for his mistakes. Probably not his baseline as his friend states that he is very sharp but highly stubborn. Pt is aware to push the call light if having to get up. OT- Vision and Hearing OT- Hearing Assessment OT- Hearing Assessment WFL OT- Vision Assessment Visual Acuity Glasses For Reading Visual Attentiveness WFL Occular Pursuits WFL M7 OT- IP Mobility and Balance Start: 03/21/24 11:29 Freq: Status: Active Protocol: Document 03/21/24 11:30 [facility]3] (Rec: 03/21/24 11:49 [facility]3] [id number]) OT- Bed Mobility Assessment Supine to Sit Supine to Sit Assist Maximum Assistance,1 Person Assistance OT-Transfer Assessment Sit to and From Stand Sit to and from Stand Moderate Assistance,Maximum Assistance Transfers Transfer Ability Moderate Assistance,Maximum Assistance Technique Transfer Destination Bed,Chair Transfer Technique Stand Step Pivot Devices Transfer Assistive Devices Gait Belt,Front Wheeled Walker Comments Mobility Comments MOD/MAXA to help get his trunk upright and to stand to the FWW. Pt tends to push on the Fww to stand and needing cues to push on surfaces. OT- Balance Assessment Sitting Balance and Reactions Static Sitting Balance Ability Good Dynamic Sitting Balance Ability Fair Standing Balance and Reactions Static Standing Balance Ability Poor Dynamic Standing Balance Ability Poor M8 OT- IP Objective Assessments Start: 03/21/24 11:29 Freq: Status: Active Protocol: Document 03/21/24 11:30 [facility]3] (Rec: 03/21/24 11:49 [facility]3] [id number]) OT Gross Range of Motion Upper Extremity Range of Motion Assessment Within Functional Limits OT Strength Upper Extremity Strength Assessment Within Functional Limits M9 OT- IP Assessment and Plan Start: 03/21/24 11:29 Freq: Status: Active Protocol: Document 03/21/24 11:30 [facility]3] (Rec: 03/21/24 11:49 [facility]3] [id number]) OT Summary Assessment and Plan Potential Rehabilitation Potential Good Analytic Complexity at Evaluation Moderate Summary OT Impairments Pain,Balance,Functional Cognition,Functional Mobility, Grooming,Dressing,Toileting, Bathing,Toilet Transfers, Shower Transfers,Activity Tolerance Progress Towards Goals Slow Progress due to Pain,Slow Progress due to Medical Issues,Slow Progress due to Activity Tolerance,Slow Progress due to Cognition Assessment Summary Pt MOD complexity and main barriers are steps, pain, decreased activity tolerance, balance, and having cognitive issues of memory and problem solving. Per pt and his friend is far from his baseline and both agreed best to go to skilled rehab. Pt scored 23/ 30 on the SLUMS which implies cognitive deficits and good to retest at a later date when pt is more recovered from his medical needs. Goals Self-Feeding Goal Independent Grooming Goal Independent Dressing Goal Independent Toileting Goal Independent Bathing Goal Independent Toilet Transfer Goal Independent Shower Transfer Goal Independent Days to Meet Goals 15 Frequency of Treatment Other frequency 5x/week Treatment Plan OT Treatment Plan ADL Training,Functional Cognition Training,Functional Mobility,Patient/Family Education,Discharge Planning Other Treatment Recommendations and Next Standing ADL's with Fww Treatment Focus Discharge Recommendations OT Discharge Recommendations SNF Rehab Transportation Needs at Discharge Wheelchair/Cabulance
--- NOTE | 2024-03-21 12:00 | ST.IPCSEOM ---
Visit Care Team Role Provider Type Virginia Upton DO Emergency Provider Physician Referring Provider Specialty: Emergency Medicine Address: [address] [place] [address], [id number] Email: [email or web address] Gera Womack MD Admit Provider Physician Attending Provider Primary Care Provider Specialty: Internal Medicine Address: [address] [place] [address], [address], [place], [address] Email: [email or web address] Current Diagnoses Other pulmonary embolism without acute cor pulmonale (03/20/24) Past Medical History (Last Reviewed 03/20/24 @ 14:09 by Gera Womack MD) Abnormal chest x-ray (Medical ~1959) Cataract (Medical ~2011) Chicken pox (Medical ~1941) Chronic back pain (Medical) Chronic renal failure, stage 3a (Medical) Chronic rhinitis (Medical 02/08/02) Coronary artery disease involving newtok coronary artery of newtok heart without angina pectoris (Medical 10/31/10) Essential hypertension (Medical) Gastroesophageal reflux disease without esophagitis (Medical 04/22/15) GI bleeding (Medical ~2013) Hay fever (Medical ~1963) Hearing loss (Medical) 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 Gera Womack Reason for Referral Difficulties swallowing pills Setting Assessment Location Acute Care Visit Type Note Type Initial evaluation Next Note Type Next Note Type Treatment Note Patient Information Identification Type Name,Wristband History Per H&P: 88-year-old male, well known to me but not seen for about a year, apparently fell evening prior to admission was unable to get himself up off the ground eventually in the morning crawled to the phone and dial 911. Patient reports felt like he had food poisoning had lot of nausea then vomiting and ended up on the ground and could not get himself up and so he slept the night on the floor. EMS found him on the floor mildly hypoxic and certainly globally weak. Patient was brought to the ER where he was evaluated found to have the mild hypoxia as well as elevated white blood cell count elevated lactate elevated CPK and per ER physician appears to be in new atrial fibrillation (although 12 lead ECG looks like more of an organized supraventricular rhythm). In addition CT angiography of the chest demonstrates pulmonary embolism on the right side difficult to ascertain exactly where (see Radiology interpretation) Patient was self denies any other particular symptoms. Does not have any pain. He was not had any fever chills or infectious kind of symptoms . 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 She states she crushed him for him this morning and he had no trouble. OT reports his SLUMs scor is 23/30. Subjective Observations Pt sitting upright in chair in room upon ST entering room. Pt awake, alert and agreeable to evaluation. Pt family friend present in room. Pt reports difficulties swallowing d/t throat discomfort from vomiting prior to hospital admission. He also reports reduced appetite d/t a blockage pointing to his abdomen. He reports a long history with reflux, which he takes tums for. Reported by Patient/Caregiver Other Symptoms Difficulty swallowing pills, Difficulty swallowing solids Current Diet Regular (IDDSI 7) Baseline Feeding Method Independent in self-feeding The IDDSI Framework Protocol: IDDSI.1 Objective Assessment Mental Status Alert,Responsive,Cooperative Comment Oral motor exam revealed oral musculature strength and ROM to be WFL. Natural dentition, good condition. Food and Liquid Trials Position During Assessment Upright (90 degrees) Liquids Trialed Thin (IDDSI 0) Solid Trials Soft & Bite-sized (IDDSI 6), Regular (IDDSI 7) Administration Type Straw,Self-feeding Oral Impairment Within functional limits Oral Phase Comments Pt consumed 1 antonella cracker and about 1/4 of a peanut butter and jelly sandwich with about 4 oz of thin water via straw. For solids, he took adequate bite size, prolonged mastication however adequate bolus formation and control, prolonged ap transport, minimal oral stasis. For liquids, he demonstrated good suction, good oral acceptance and containment, timely ap transport. Pharyngeal Impairment Mildly impaired Pharyngeal Phase Comments No overt s/s of aspiration, such as coughing or choking. He reported mild throat pain when swallowing, which may be d/t irritation from excessive emesis. Fatigue/Endurance Endurance WNL The IDDSI Framework Protocol: IDDSI.1 Findings Swallowing Function Pharyngeal phase dysphagia Severity of Swallow Impairment Mildly impaired Prognosis Good Impact on Safety and Functioning Risk for inadequate nutrition/ hydration Recommendations Instrumental Assessment No Swallowing Treatment Yes Frequency 1x follow up Recommended Solids Soft & Bite-sized (IDDSI 6) Recommended Liquids Thin (IDDSI 0) Other Recommendations Pt presents with mild pharyngeal dysphagia. ST recommends IDDSI 6/IDDSI 0 d/t Pt reporting throat pain with regular/harder consistencies d/t throat irritation from emesis. ST to f/u 1x to see if Pt's throat feels better for potential upgrade to regular solids. ST provided verbal education related to reflux precautions, such as sleeping with head raised slightly and dietary recommendations. Pt declined a handout on reflux precautions, stating he was overwhelmed with all the information he has been receiving. ST recommends a consult with care management specialist d/t poor intake and a referral to GI. Safety Precautions/Swallowing Remain upright (90 degrees) Recommendations during all oral intake,Upright position at least 30 minutes after meals,Small bites and sips when eating,Slow rate; swallow between bites, Alternate liquids and solids Medication Recommendations Crushed Referrals Recommended Referrals Dietary,Gastroenterology Education Patient/Caregiver Education Described results of evaluation,Patient expressed understanding of evaluation Goals Short-term Goals STG1: Pt will tolerated prescribed diet with no overt s/s of aspiration or dysphagia . Long-term Goals LTG 1: Pt will tolerate safest and most efficient least restrictive diet.
--- NOTE | 2024-03-21 14:17 | CM.DANOTE ---
Initial DCP Assessment Visit Note Reviewed EMR and team rounds for patient's medical status and updates. Met with patient at bedside to introduce self and role, patient was found to be alert, oriented, calm, and cooperative. Patient resides at home living independently at baseline. He uses a walking stick. He has tried a front wheeled walker in the past but his friend who was also in the room during this assessment, reported that the patient did not like using the walker and he returned it. Patient lives in [place]. Patient stated that he does not feel like he is ready to discharge back to his home. He prefers to go to a retirement facility for rehabilitation. Progress notes from Dr Womack and PT notes also indicated discharge to SNF is safest plan. Patient has agreed to be referred to [facility]. STACI 03/23/24 Payer: [facility] PCP: Dr Womack Patient is an 88 year old male who presented to the Er by ambulance yesterday afternoon after falling at home. Patient stayed in place where he fell for a long time before he was able to call 911. At the ER patient reported weakness and vomiting, EMT reported that vomit was like dark like coffee grounds. At ER patient was found to be in new onset A-FIB, CT showed PE in right lung, lab work showed evidence of rhabdomyolysis and elevated WBCs and possibility of sepsis. Patient was started on IV antibiotic and anticoagulant. Today progress note from Dr Womack indicated that sepsis is unlikely but IV antibiotic will be continued for now. Patient will continue oral anticoagulant for PE. Labs indicate rhabdomyolysis appears to be improving. Patient worked with PT today and PT recommended SNF at discharge. Patient prefers to go to SNF as recommended. DCP will continue to monitor for any further evolving needs in relation to discharge and transition to rehab. Derik Chan RN Discharge Planning/Care Management CM Discharge Assessment Start: 03/21/24 12:11 Freq: Status: Active Protocol: Document 03/21/24 13:30 TYLER (Rec: 03/21/24 13:32 TYLER [id number]) Discharge Planning Assessment Assigned Manager Philosophy Derik Chan RN Advance Directives? Yes Advance Directives on File No History Provided By Patient,Friend,Medical Record Expected Length of Stay 3 Has Patient been admitted in last 30 No days? Prior Living Arrangements House Household Members none Type of transporation used prior to Drives own vehicle admit Independent with ADL's Yes: Friend reports need for bath aid. Is patient alert and oriented? Yes Needs Assistance With Bathing,Home Chores / Shopping DME Already Rented / Owned Cane Comment Walking stick. Patient/Family Preference [facility] Facility Discharge Plan [facility] Referrals Initiated [facility] If patient plan is SNF: Has PASSR been No completed? Inpatient Status as of 03/20/[address] Womack ordered IP at 15:46 Medicare Choice List Provided Yes SNF/HH Preference [facility]. Has Agency SNF been contacted No Whiteboard Updated in Patient Room with Yes name and ext. # of Manager Philosophy Review Status In Process
[2024-03-21] MEDS: polyethylene glycoL 3350 17 GM POWD.PACK PO (14:58)
[2024-03-22] VITALS (7 sets, daily range): BP systolic 138–164; BP diastolic 79–94; PULSE 70–78; RESP 16–18; TEMP 36.9–37.3; O2SAT 92–99
[2024-03-22 06:07] LABS: Hematocrit 35.3 % (41-53); Hemoglobin 11.6 g/dL (13.5-17.5)
[2024-03-22 06:21] LABS: BUN Creatinine Ratio 18.9 (6-22); Blood Urea Nitrogen 20 mg/dL (9-20); Calcium 7.8 mg/dL (8.4-10.2); Carbon Dioxide 24 mmol/L (22-32); Chloride 107 mmol/L (98-107); Estimated Glomerular Filt Rate > 60 mL/min (>60); Glucose 96 mg/dL (80-110); HEMOLYSIS < 15 (0-50); Potassium 3.3 mmol/L (3.4-5.1); Sodium 137 mmol/L (137-145)
[2024-03-22] MEDS: PANTOPRAZOLE DR 40 MG TABLET PO (06:28)
--- NOTE | 2024-03-22 07:18 | PM.PN.IH.1 ---
Subjective Subjective Date Patient Seen: 03/22/24 Time Patient Seen: 07:18 Interval history: Essentially uneventful day yesterday Able to get up with maximum assist with physical therapy Remains off oxygen and vital signs have been stable Potassium slightly low and replaced yesterday, still slightly low this morning H&H stable this morning Telemetry demonstrates continued normal sinus rhythm with frequent PACs and occasional PVCs. Exam Vital Signs (past 8 hours): - 03/22/24 02:16 Temperature 99.2 F Pulse Rate 78 Respiratory Rate 16 Blood Pressure 157/88 H Pulse Oximetry 94 Oxygen Delivery Method Room Air Oxygen Flow Rate 0 Objective Labs 03/22/24 05:45 03/22/24 05:45 Labs: Laboratory Results - last 24 hr 03/22/24 05:45 Hgb 11.6 L Hct 35.3 L Sodium 137 Potassium 3.3 L Chloride 107 Carbon Dioxide 24 BUN 20 Creatinine 1.06 Estimated GFR > 60 BUN/Creatinine Ratio 18.9 Glucose 96 Calcium 7.8 L Magnesium 2.0 PFSH Medical History Chronic renal failure, stage 3a Vision disorder Hearing loss Osteoarthritis Hay fever (~1963) Abnormal chest x-ray (~1959) Shoulder pain (~2015) Chronic back pain Rosacea (~1999) Chicken pox (~1941) Cataract (~2011) GI bleeding (~2013) Chronic rhinitis (02/08/02) Gastroesophageal reflux disease without esophagitis (04/22/15) Essential hypertension Tinnitus Mixed hyperlipidemia 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 Acute pulmonary embolism-continue with Eliquis orally. Not hypoxic any longer. Blood work pending regarding possible hypercoagulable status. No changes for today 2. Rhabdomyolysis-renal function stable. Ambulate patient was able. No further concerns 3. Atrial fibrillation-seems to have returned to sinus rhythm, if he was ever in AFib. Will discontinue telemetry 4. Hypertension-stable continue current meds adequate control 5. Disposition-patient to continue to work with skilled therapies. Likely will need placement in detention when ready for discharge which could be a soon as tomorrow. I would anticipate him medically ready for discharge within the next 24-48 hours Time-Based Coding :: [TOTAL MINUTES] spent with patient and on the chart (including review of chart, obtaining history, exam, reviewing outside data, placing orders, documenting exam and treatment plan, and counseling patient) on [DATE]. Quality VTE Deep Vein Thrombosis/Pulmonary Embolism Present on Admission: No PROFEE Social Insurance Adviser Document charge(s): Yes Charge Codes Subsequent inpatient/observation care: [id number]
[2024-03-22] MEDS: POTASSIUM CHLORIDE 20 MEQ TAB PO ×3 (08:12→17:29)
[2024-03-22] MEDS: APIXABAN 5 MG TABLET 10 MG PO ×2 (08:12→20:47)
[2024-03-22] MEDS: AMLODIPINE 5 MG TABLET 10 MG PO (08:12)
--- NOTE | 2024-03-22 11:36 | ST.IPDYTX ---
Visit Care Team Role Provider Type Virginia Upton DO Emergency Provider Physician Referring Provider Specialty: Emergency Medicine Address: [address] [place] [address], [address] Email: [email or web address] Admit Provider Physician Attending Provider Primary Care Provider Specialty: Internal Medicine Address: [address] [place] [address], [address], [place], [address] Email: [email or web address] LEGAL EXECUTIVE Dysphagia Treatment LEGAL EXECUTIVE Dysphagia Treatment Start: 03/22/24 11:04 Freq: Status: Active Protocol: Document 03/22/24 11:04 CG (Rec: 03/22/24 11:10 CG [id number]) Dysphagia Treatment Session Time Visit Start Time 11:10 Visit Stop Time 11:30 Total Visit Minutes 20 Visit Information Visit Number 2 Setting Assessment Location Acute Care Patient Information Subjective Observations Pt reclined in bed upon ST entry to room. Pt awake, alert and agreeable to evaluation. Nursing reports that meds continue to be crushed. Nursing stated that pt reports he chews his pills at home. Pt continues to endorse history of reflux and GI concerns. 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 Pt states he has not discussed surgery for his esophagus with GI or other doctors, unsure that he would pursue surgery at this point in my life. Pt states he continues to feel as though he has a bowel blockage, though this has not been dx. He stated he attempted a BM this morning but was largely unsuccessful. He does have an appetite, but is reticent to eat as he feels the food has no place to go and is getting backed up. Pt states he typically medicates his reflux with Tums or Pepto-Bismol. He says he has been on pantoprazole in the past but is not currently taking it. He is not currently being followed by a GI. Pt states he ate a breakfast this morning of dry muffin, eggs and cheese. Did not report any coughing/choking with intake. Treatment Liquids Trialed Thin (IDDSI 0) Solids Trialed Regular (IDDSI 7) Treatment Activities PO trials thin liquids and regular solids. Review of reflux precautions. LEGAL EXECUTIVE consult w RN re recommendations. LEGAL EXECUTIVE to consult with attending, marycarmen Castano GI concerns. The IDDSI Framework Protocol: IDDSI.1 Assessment Patient Response to Treatment Good Rehab Potential Good Assessment of Improvement Pt continues to c/o feeling of bowel obstruction and feeling as though it is hard to initiate swallowing due to being backed up. Pt denies pain with swallowing today as throat pain from emesis episodes is resolving. Pt demonstrated no overt s/sx penetration/aspiration or respiratory distress with trials of thin liquids or regular solid (saltine cracker ). Pt tolerating current diet of soft and bite sized solids and thin liquids; recommend continue on this diet. Recommend continue to crush meds given suspected esophageal dysphagia and given this is what pt was doing at baseline. Most of pt's symptoms are consistent with esophageal/GI concerns. There are no immediate concerns for pharyngeal/laryngeal dysfunction and pt does not present as a significant aspiration risk at this time. Therefore, d/c LEGAL EXECUTIVE services at this time as pt's symptoms would be best managed by a GI or pt's PCP. Pt may benefit from prescription tx of reflux and/or additional imaging for GI concerns, such as a regular barium swallow study ( not a modified with ST as there are no clear indications of laryngeal/pharyngeal involvement). Recommendations Recommendations Continue Current Diet Liquids Order Thin (IDDSI 0) Diet Order Soft & Bite-sized (IDDSI 6) Medication Recommendations Crushed Treatment Plan Placement Recommendation after Discharge Home,Residential Facility Appropriate for Continued Therapy No: Defer to GI/PCP Referrals/Other Recommended Referrals Primary Care Physician,GI Consult
--- NOTE | 2024-03-22 12:05 | PT-IP ANOTE ---
PT attempts to see pt who is having lunch. Pt declines to have PT until after lunch.
--- NOTE | 2024-03-22 13:28 | DI.RAD.S_ITS ---
PROCEDURE: XR ABDOMEN MIN 2V INDICATIONS: abd pain/constipation TECHNIQUE: 2 views of the abdomen were acquired. COMPARISON: None. FINDINGS: Stool gas pattern: Normal-no evidence of ileus or obstruction. No free intraperitoneal or extraperitoneal air. No gross evidence of ascites Soft tissues: Small rounded pelvic calcifications are likely phleboliths or other benign calcifications.. No soft tissue masses. Organs: No gross evidence for organomegaly. IMPRESSION: Normal abdomen Dictated by: Gera Moore M.D. on 03/23/2024 at 10:39 Approved by: Gera Moore M.D. on 03/23/2024 at 10:40
--- NOTE | 2024-03-22 13:29 | PC.NURSE ---
Day shift: GROUP THERAPY COUNSELOR noticed that there was some blood around pt's penis and notified this RN. There is some blood around his urethra. Pt has been using a condom catheter, and he said that he was picking at some hairs around his penis due to the adhesive but doesn't recall doing anything else. He denied pain or burning with urination. Dr Madrid notified, and a UA has been ordered.
--- NOTE | 2024-03-22 13:52 | CM.DPC ---
Addendum entered and electronically signed by DARSHAN Chaudhari 03/22/24 14:13: [place] Auth Number is [id number]. Original Note: Today patient was able to work with PT. He is requiring two person maximum assist. Patient reported he still feels very weak. Dr Womack saw patient today and his note indicated patient has stable vitals and is on room air, potassium remains slightly low, patient will continue eliquis for PE, antibiotic was stopped, renal function is now stable, and A-FIB has resolved and patient is off telemetry. DC plan will be to [facility] with main goal of ongong PT and OT to improve strength. PASSR has not been done yet. [employer] Authorization was started by phone with Sacha. Notes faxed to her to review. She will call back with a decision. [facility] is able to accept the patient as soon as tomorrow once authorization is approved and PASSR is completed. Also patient asked for information on [facility] [facility] for at home emergencies. Patient was given the phone number to call [employer] to set this up. He was also given the senir resource guide to research caregivers, LTC facilities, and a flyer regarding [facility] which patient's friend had requested for informational purposes.
--- NOTE | 2024-03-22 16:07 | PT-IP ANOTE ---
checked on pt and pt refused PT. stated that he just feels too weak to do anything. encouraged pt to do PT and get out of the bed but pt refused.
[2024-03-22 16:15] LABS: Appearance Urine UA CLEAR; Bilirubin Urine UA NEGATIVE (NEGATIVE); Color Urine UA YELLOW; Glucose Urine UA NEGATIVE (Negative); Ketones Urine UA TRACE (NEGATIVE); Leukocyte Esterase Urine UA NEGATIVE (NEGATIVE); Nitrite Urine UA NEGATIVE (Negative); Occult Blood Urine UA 2+ (Negative); Protein Urine UA TRACE (Negative); Urobilinogen Urine UA 0.2 E.U./dL (0.2); pH Urine UA 6.5 (4.5-8.0)
[2024-03-22] MEDS: OXYCODONE IR 5 MG TABLET PO (16:18)
[2024-03-22 16:31] LABS: Urine Volume 10mL (spun)
[2024-03-22 16:38] LABS: Bacteria Urine Occasional (0-1); RBC Urine 0-1/HPF (0-5/HPF); WBC Urine None Seen (0-5/HPF)
[2024-03-22 16:39] LABS: Culture Indicated Urine Cult Not Indicated; Squamous Epithelial Cell Urine None Seen (0-5/HPF)
[2024-03-22] MEDS: ATORVASTATIN 20 MG TABLET 40 MG PO (20:47)
[2024-03-23 02:24] VITALS: BP 141/77; PULSE 59; RESP 17; TEMP 36.6; O2SAT 94
[2024-03-23] MEDS: PANTOPRAZOLE DR 40 MG TABLET PO (05:35)
[2024-03-23 06:03] LABS: BUN Creatinine Ratio 15.6 (6-22); Blood Urea Nitrogen 14 mg/dL (9-20); Calcium 8.3 mg/dL (8.4-10.2); Carbon Dioxide 23 mmol/L (22-32); Chloride 106 mmol/L (98-107); Estimated Glomerular Filt Rate > 60 mL/min (>60); Glucose 102 mg/dL (80-110); HEMOLYSIS 16 (0-50); Sodium 136 mmol/L (137-145)
--- NOTE | 2024-03-23 07:39 | PM.PN.IH.1 ---
Subjective Subjective Date Patient Seen: 03/23/24 Time Patient Seen: 07:39 Interval history: Pretty much uneventful day yesterday Patient continues to complain of difficulty with his bowels likely constipation. X-rays done yesterday did not show any significant abnormality. Also reports difficulty swallowing but speech therapy does not seem to find any difficulties. Has been off his proton pump inhibitor for an extended time, so perhaps he was having degree of reflux causing more of a globus type sensation etcetera Vital signs are stable. Remains off oxygen. Up with physical therapy but needing [place] [facility] placement at this time Exam Vital Signs (past 8 hours): - 03/23/24 02:24 Temperature 97.8 F Pulse Rate 59 L Respiratory Rate 17 Blood Pressure 141/77 H Pulse Oximetry 94 Oxygen Delivery Method Room Air Oxygen Flow Rate 0 Objective Labs 03/22/24 05:45 03/23/24 05:33 Labs: Laboratory Results - last 24 hr 03/22/24 03/23/24 15:52 05:33 Sodium 136 L Potassium 4.0 Chloride 106 Carbon Dioxide 23 BUN 14 Creatinine 0.90 Estimated GFR > 60 BUN/Creatinine Ratio 15.6 Glucose 102 Calcium 8.3 L Magnesium 2.0 Urine Color Yellow Urine Appearance Clear Urine pH 6.5 Ur Specific [place] 1.020 Urine Protein Trace H Urine Glucose (UA) Negative Urine Ketones Trace H Urine Occult Blood 2+ H Urine Nitrate Negative Urine Bilirubin Negative Urine Urobilinogen 0.2 Ur Leukocyte Esterase Negative Urine RBC 0-1/hpf Urine WBC None seen Ur Squamous Epith Cells None seen Urine Bacteria Occasional (0-1) Ur Culture Indicated? 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 Acute pulmonary embolism-continue with Eliquis orally. Not hypoxic any longer. Blood work pending regarding possible hypercoagulable status. No changes for today. Last day of high dose Eliquis will be March 26 with first day of reduce dose being the 27 of March 2. GI-no evidence of any significant bowel obstruction issue etcetera. Did have bowel movement. X-rays unremarkable. Continue with MiraLax and proton pump inhibitor for possible globus like sensation with swallowing etcetera 3. Hypokalemia-patient replaced and will continue on that for now 4. Hypertension-stable continue current meds adequate control 5. Disposition-patient to continue to work with skilled therapies. Will need placement that is [place] [facility]. Okay for discharge when accepting facility and approval from insurance can both be obtained. He is medically clear at this point Time-Based Coding :: [TOTAL MINUTES] spent with patient and on the chart (including review of chart, obtaining history, exam, reviewing outside data, placing orders, documenting exam and treatment plan, and counseling patient) on [DATE]. Quality VTE Deep Vein Thrombosis/Pulmonary Embolism Present on Admission: No [facility] PROFEE Liaison Officer Document charge(s): Yes
--- NOTE | 2024-03-23 07:44 | P.DS_ITS ---
History of Present Illness History of Present Illness Date Patient Seen: 03/23/24 Time Patient Seen: 07:44 Chief complaint: Fall, Weakness Narrative: 88-year-old male, well known to me but not seen for about a year, apparently fell evening prior to admission was unable to get himself up off the ground eventually in the morning crawled to the phone and dial 911. Patient reports felt like he had food poisoning had lot of nausea then vomiting and ended up on the ground and could not get himself up and so he slept the night on the floor. EMS found him on the floor mildly hypoxic and certainly globally weak. Patient was brought to the ER where he was evaluated found to have the mild hypoxia as well as elevated white blood cell count elevated lactate elevated CPK and per ER physician appears to be in new atrial fibrillation (although 12 lead ECG looks like more of an organized supraventricular rhythm). In addition CT angiography of the chest demonstrates pulmonary embolism on the right side difficult to ascertain exactly where (see Radiology interpretation) Patient was self denies any other particular symptoms. Does not have any pain. He was not had any fever chills or infectious kind of symptoms. He was had no chest pain palpitations orthopnea or PND Discharge Providers Provider Date of admission: 03/20/24 13:59 Discharge Date: 03/23/24 Primary care physician: Gera Womack MD Consults: 03/20/24 15:46 Consult to Discharge Planning Routine Comment: Consult to Occupational Therapy Evaluate & Treat Comment: Physician Instructions: Evaluate and treat Consult to Physical Therapy Evaluate & Treat Comment: Physician Instructions: Evaluate and Treat 03/20/24 15:59 Consult to Speech Therapy Evaluate & Treat Comment: pt states feels like he has a blockage in his thro Physician Instructions: Evaluate and treat 03/21/24 09:20 Consult to Dietitian, Adult Routine Comment: Reason For Exam: Pt has had a reduced appetite for several days Discharge provider: Gera Womack MD Summary Hospital Course Discharge Diagnosis: 1. Pulmonary embolism right lung 2. Hypokalemia, resolved 3. Cardiac arrhythmia, likely frequent PACs verses possible atrial fibrillation 4. Constipation 5. Gastroesophageal reflux disease 6. Globus sensation 7. Hypertension, essential 8. Rhabdomyolysis, resolved 9. Status post Ground level fall 10. Global weakness with inability to walk on own Hospital Course: Patient was admitted to the hospital as above. Found to have a pulmonary embolism in the right lung. Started with a dose of Lovenox then given oral Eliquis at the higher dose for PE. Patient was initially minimally hypoxic but this rapidly resolved and he remained off of supplemental oxygen for the remainder of his hospitalization after the first 24 hours Patient on telemetry he was felt to possibly have atrial fibrillation however 12 lead ECG demonstrated a sinus rhythm with frequent PACs. Telemetry also did not demonstrate clear atrial fibrillation more sinus rhythm with very frequent PACs making an irregular rhythm. Echocardiography was performed which did not show evidence of right heart strain or further complication related to his pulmonary embolism and or atrial fibrillation Patient with abdominal symptoms basically struggling to have a bowel movement felt like he was having a blockage of some sort but no nausea or vomiting associated with this. X-rays did not demonstrate bowel obstruction. He was felt to be more constipated than anything else and did have a bowel movement prior to discharge, but will need to continue on bowel meds etcetera Patient's blood pressure initially very well controlled somewhat more hypertensive as he improved clinically otherwise. Continue his usual medications and follow Patient also globally weak requiring assistance of skilled therapies. Therefore it was felt like he should be discharged to long term to continue rehabilitation prior to consideration of returning home Status at Discharge Cognitive/behavioral status at discharge: at baseline, oriented Functional status at discharge: uses cane/walker Overall status at discharge: patient is progressing back to baseline Time Spent with Patient Time spent: Greater than 30 minutes Exam Vital Signs (past 8 hours): - 03/23/24 02:24 Temperature 97.8 F Pulse Rate 59 L Respiratory Rate 17 Blood Pressure 141/77 H Pulse Oximetry 94 Oxygen Delivery Method Room Air Oxygen Flow Rate 0 Objective Labs 03/22/24 05:45 03/23/24 05:33 Labs: Laboratory Results - last 24 hr 03/22/24 03/23/24 15:52 05:33 Sodium 136 L Potassium 4.0 Chloride 106 Carbon Dioxide 23 BUN 14 Creatinine 0.90 Estimated GFR > 60 BUN/Creatinine Ratio 15.6 Glucose 102 Calcium 8.3 L Magnesium 2.0 Urine Color Yellow Urine Appearance Clear Urine pH 6.5 Ur Specific [place] 1.020 Urine Protein Trace H Urine Glucose (UA) Negative Urine Ketones Trace H Urine Occult Blood 2+ H Urine Nitrate Negative Urine Bilirubin Negative Urine Urobilinogen 0.2 Ur Leukocyte Esterase Negative Urine RBC 0-1/hpf Urine WBC None seen Ur Squamous Epith Cells None seen Urine Bacteria Occasional (0-1) Ur Culture Indicated? 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 Hypercoagulable labs pending Patient to continue on modest dose potassium replacement with a need for follow- up lab work etcetera Patient to continue on his other usual medications, including pantoprazole or similar proton pump inhibitor for gastroesophageal reflux with globus sensation Patient should continue on MiraLax for constipation Discharge Plan Discharge Plan Patient Disposition: SNF Transfer to: [facility] Consult as needed: Dental, Hearing, Mental health, Podiatry and Vision Discharge orders & Medications Prescriptions: New Eliquis 5 mg Tablet 10 mg PO BID Qty: 10 0RF Rx Instructions: stop this dose on 03/27/24, start lower dose on that date Eliquis 5 mg tablet 5 mg PO BID Qty: 60 0RF Rx Instructions: start 03/27/2024 (after 1 week on higher dose) potassium chloride [Klor-Con M20] 20 mEq Tablet,Er Particles/Crystals 20 meq PO BIDWM Qty: 60 0RF polyethylene glycol 3350 17 gram Powder In Packet 17 g PO DAILY PRN (Reason: Constipation) Qty: 100 0RF Continued pantoprazole [Protonix] 40 mg tablet,delayed release (DR/EC) 40 mg PO QAM PRN (Reason: GERD) Qty: 90 3RF amlodipine 10 mg tablet 10 mg PO QDAY Qty: 90 3RF atorvastatin 40 mg tablet 40 mg PO QDAY Qty: 90 1RF Discontinued ASPIRIN (#ASPIRIN) 81 mg PO Q DAY Qty: 0 ibuprofen 200 mg capsule 200 mg PO Q8H PRN (Reason: fever or pain) Follow up/Referrals: Gera Womack MD [Primary Care Provider] - Discharge Health Status Multidrug resistant organism: No MDRO Precautions: [place] Diet/Activity/Treatments Diet: Diet as Tolerated Liquid consistency: Normal/Thin Food texture: Regular Visit Report/Discharge Packet Stand Alone Forms: Patient Portal/API Discharge Data Primary Care Provider: Gera Womack Quality VTE Deep Vein Thrombosis/Pulmonary Embolism Present on Admission: No [facility] PROFEE Charge Codes Discharge inpatient/observation: 35163
[2024-03-23 08:00] VITALS: BP 152/86; PULSE 68; RESP 18; TEMP 36.9; O2SAT 92
[2024-03-23] MEDS: POTASSIUM CHLORIDE 20 MEQ TAB PO ×2 (08:07→12:43)
[2024-03-23] MEDS: APIXABAN 5 MG TABLET 10 MG PO (08:07)
[2024-03-23] MEDS: AMLODIPINE 5 MG TABLET 10 MG PO (08:07)
[2024-03-23 08:16] VITALS: O2SAT 92
[2024-03-23] MEDS: MAGNESIUM HYDROXIDE 30 ML UDC PO (09:19)
--- NOTE | 2024-03-23 10:26 | PC.NURSE ---
Addendum entered by Jemima Che R.N. 03/23/24 13:06: Pt exited via w/c with [facility] personnel at 1305. Original Note: D/c packet assembled. IV removed. Report given to Barbara at [facility]. Pt is scheduled to be picked up by [employer] personnel around 1130.
--- NOTE | 2024-03-23 11:13 | CM.DPC ---
DCP Cont. Reviewed EMR and team rounds for status updates. Pt has been medically cleared for d/c to [facility]. They will transport him at 11:30am today. D/c clinicals have been faxed, [facility] faxed. No further needs identified at this time.
[2024-03-23 12:40] LABS: Protein C-Functional 55 % (73-180); Protein S-Functional 58 % (63-140)
== END 2024-03-23 13:05 | DRG 176 ==
LOC: ED 11:25 → AC 14:00
PROVIDERS: Family Medicine; Admitting Provider Internal Medicine; Emergency Provider Emergency Medicine; PCP Internal Medicine; Referring Provider Emergency Medicine; Visit Provider Internal Medicine
DX: I26.99 Other pulmonary embolism without acute cor pulmonale (principal); M62.82 Rhabdomyolysis; R53.1 Weakness; I48.91 Unspecified atrial fibrillation; I10 Essential (primary) hypertension; E78.5 Hyperlipidemia, unspecified; I25.10 Atherosclerotic heart disease of native coronary artery without angina pectoris; I49.1 Atrial premature depolarization; E87.6 Hypokalemia; I49.3 Ventricular premature depolarization; R09.02 Hypoxemia; K21.9 Gastro-esophageal reflux disease without esophagitis; F45.8 Other somatoform disorders; E78.2 Mixed hyperlipidemia; W18.30XA Fall on same level, unspecified, initial encounter; Z60.2 Problems related to living alone; Z79.82 Long term (current) use of aspirin
CPT/HCPCS: 0241U; 36415; 70450; 71045; 71275; 74019; 80048; 80053; 80320; 81001; 81003; 81015; 81241; 82550; 83520; 83605; 83690; 83735; 83880; 84443; 84484; 85014; 85018; 85025; 85303; 85306; 85379; 85610; 85730; 86147; 86148; 86850; 86900; 86901; 87040; 92526; 92610; 93005; 93306; 96365; 96366; 96372; 96375; 97129; 97162; 97166; 97530; 97535; 99285; J1650; J2405; J2470; J2543; Q9967

== ENCOUNTER → 2024-04-14 11:01 | Outpatient (CLI) | payer OTHER, SELFPAY ==
[2024-03-20 14:07] VITALS: BMI 23.3
[2024-04-14 12:00] LABS: BUN Creatinine Ratio 27.8 (6-22); Blood Urea Nitrogen 30 mg/dL (9-20); Calcium 8.9 mg/dL (8.4-10.2); Carbon Dioxide 25 mmol/L (22-32); Chloride 106 mmol/L (98-107); Estimated Glomerular Filt Rate > 60 mL/min (>60); Glucose 103 mg/dL (80-110); HEMOLYSIS < 15 (0-50); Potassium 4.4 mmol/L (3.4-5.1); Sodium 140 mmol/L (137-145)
== END ==
PROVIDERS: PCP Internal Medicine; Referring Provider Internal Medicine; Visit Provider Internal Medicine
DX: I10 Essential (primary) hypertension (principal)
CPT/HCPCS: 36415; 80048

== ENCOUNTER → 2024-06-08 14:41 | Outpatient (CLI) | payer OTHER, SELFPAY ==
[2024-03-20 14:07] VITALS: BMI 23.3
[2024-06-08 15:57] LABS: BUN Creatinine Ratio 17.5 (6-22); Blood Urea Nitrogen 22 mg/dL (9-20); Carbon Dioxide 25 mmol/L (22-32); Chloride 105 mmol/L (98-107); Estimated Glomerular Filt Rate 55 mL/min (>60); Glucose 114 mg/dL (80-110); HEMOLYSIS < 15 (0-50); Potassium 4.1 mmol/L (3.4-5.1); Sodium 141 mmol/L (137-145)
== END ==
PROVIDERS: PCP Internal Medicine; Referring Provider Internal Medicine; Visit Provider Internal Medicine
DX: I10 Essential (primary) hypertension (principal)
CPT/HCPCS: 36415; 80048